=== PATIENT | male | born 2000 | race African-American/Black ===

== ENCOUNTER 2024-09-10 22:34 | Emergency (ER) | payer OTHER, SELFPAY ==
--- NOTE | ~2024-09-10 | XR_ITS ---
EXAMINATION: XR CHEST CLINICAL INFORMATION: sob/cough COMPARISON: None available. TECHNIQUE: 2 views of the chest were obtained. FINDINGS: No significant abnormality is noted involving the heart, lungs, mediastinum, bony thorax or soft tissues. XR/XR chest 2V IMPRESSION: Unremarkable examination. Electronically signed by: Asad Roth MD 09/10/2024 11:48 PM [facility] [place]
[2024-09-10 22:40] VITALS: BP 138/80; PULSE 109; RESP 22; TEMP 36.6; O2SAT 97; BMI 42.3
[2024-09-10 22:59] VITALS: PULSE 103; RESP 16; O2SAT 97
[2024-09-10 23:41] LABS: MANUAL DIFF FLAG NO
[2024-09-10 23:44] VITALS: PULSE 84; RESP 18; O2SAT 98
[2024-09-10 23:44] LABS: Basophils Absolute Auto 0.1 X10*3/uL (0.0-0.2); Basophils Percent Auto 0.7 % (0-2); Eosinophils Absolute Auto 1.4 X10*3/uL (0.0-0.4); Hemoglobin 15.3 g/dl (14.0-18.0); Imm Gran Abs Auto 0.04 X10*3/uL (0.00-0.03); Imm Gran Pct Auto 0.3 % (0.0-0.4); Lymphocytes Absolute Auto 2.4 X10*3/uL (1.2-4.9); Lymphocytes Percent Auto 16.9 % (20-40); Mean Corpuscular HGB Conc 34.8 g/dl (31.0-36.0); Mean Corpuscular Hemoglobin 30.4 pg (27.0-33.0); Mean Corpuscular Volume 87.5 fL (80.0-98.0); Mean Platelet Volume 9.2 fL (9.4-12.4); Monocytes Percent Auto 7.3 % (2-11); Neutrophils Absolute Auto 9.1 x10*3/uL (2.0-8.3); Neutrophils Percent Auto 64.8 % (45-73); Platelet Count 352 X10*3/uL (160-400); Red Blood Count 5.03 X10*6/uL (4.60-5.80); Red Cell Distribution Width 13.3 % (11.0-16.0); White Blood Count 14.1 X10*3/uL (4.8-10.8)
[2024-09-10] MEDS: Albuterol Sulfate 2.5 MG, Albuterol/Iprat 2.5/0.5MG 3 ML 3 ML INHALE (23:44)
--- NOTE | 2024-09-10 23:49 | ED.PEDSOB ---
HPI - Pediatric SOB/Dyspnea General Chief Complaint: Dyspnea Stated Complaint: diff breathing Time Seen by Provider: 09/10/24 23:31 Source: patient Mode of arrival: ambulatory Limitations: no limitations History of Present Illness ED Provider: Dr. Zeny Rojas HPI Narrative: Patient comes to the emergency room complaining of shortness of breath, productive cough for couple of days. Patient reports using the inhaler several times prior to arrival, last time 01:00 hour prior to arrival. Patient states that feels that he is still wheezing. Denies any recent episodes of fever. Patient states that 3 weeks ago he was seen in the hospital for palpitations but has not reoccurred since then. Patient states that he is almost out of his medication albuterol Related Data Previous Rx's ?Medication ?Instructions ?Recorded albuterol sulfate 2.5 mg/3 mL 2.5 mg (3 mL) inhalation Q4-6H PRN 09/11/24 (0.083 %) solution for nebulization bronchospasm #75 mL albuterol sulfate 90 mcg/actuation 2 puff inhalation Q4-6H PRN 09/11/24 aerosol inhaler shortness of breath or wheezing #6.7 grams prednisone 50 mg tablet 50 mg PO DAILY #5 tabs 09/11/24 Allergies Allergy/AdvReac Type Severity Reaction Status Date / Time No Known Allergies Allergy Unverified 09/10/24 22:40 [No Known Allergies*] Pediatric Review of Systems Review of Systems: Constitutional : No Weight loss, No Fever, No Chills, No Night Sweats, No Fatigue, No Malaise ENT/Mouth : No Hearing loss, No Ear Pain, No Nasal Congestion, No Sinus Pain, No Hoarseness, No sore throat, No Rhinorrhea, No Swallowing Difficulty Eyes: No Eye Pain, No Swelling, No Redness, No Foreign Body, No Discharge, No Vision Changes Cardiovascular : Complaining of chest tightness without any Chest Pain, palpitations 3 weeks ago, no orthopnea Respiratory : Complaining of cough, wheezing No Smoke Exposure, No Dyspnea Gastrointestinal : No Nausea, No Vomiting, No Diarrhea, No Constipation, No abdominal Pain, No Hematochezia, No Melena Genitourinary : no irregular bleeding, No Dysuria, No Urinary Frequency, No Hematuria, No Urinary Incontinence, No Urgency, No Flank Pain, No Urinary Flow Changes, No Hesitancy Musculoskeletal : No joint pain, No Myalgias, No Joint Swelling Skin : No Skin Lesions, No rash Neuro : No Weakness, No Numbness, No Paresthesias, No Loss of Consciousness, No Dizziness, No Headache Psych : No Anxiety/Panic, No Depression, No SI/HI/AH/VH, No Social Issues, Heme/Lymph: No Bruising, No Bleeding,No Lymphadenopathy Endocrine : No Polyuria, No Polydipsia, No Temperature Intolerance [facility] Past Medical History Medical History (Updated 09/11/24 @ 00:42 by Zeny Rojas MD) Asthma Social History Social History Smoked in Last 30 Days: No Use of substances other than those prescribed or required for medical reasons: No Advance Directives: No Advance Directives Information Provided: Yes Pediatric Exam Narrative: Physical exam: Appearance: Alert. Oriented X3. No acute distress. Eyes: Pupils equal, round and reactive to light. ENT: Pharynx normal. Neck: Normal inspection. Neck supple. No lymph nodes noted. No crepitus CVS: Normal heart rate and rhythm. Pulses normal. Normal S1 and S2 Respiratory: No respiratory distress. Mild bilateral wheezing, moderate air movement, no rales or crackles Abdomen: Soft and nontender. No rigidity. No distention. Skin: Skin warm and dry. Normal skin color. Normal skin turgor. Extremities: No lower extremity edema. No Lacerations. No Rash Neuro: Oriented X 3. No motor deficit. No sensory deficit. Moving all extremities. No slurred speech. CN 2 through 12 grossly intact Psych: calm, cooperative, normal affect General: Limitations: no limitations Course Course Course Narrative: Patient receiving albuterol nebulization treatment, IV magnesium and Solu-Medrol Labs pending Medications Administered Discontinued Medications Generic Name Dose Route Start Last Admin Trade Name Freq PRN Reason Stop Dose Admin Albuterol Sulfate 2.5 mg/ 0 mg 09/10/24 23:31 09/10/24 23:44 Albuterol/Ipratropium 3 ml INHALE 09/10/24 23:32 1 dose ONCE ONE Administration Magnesium Sulfate/Dextrose 1 gm in 100 mls @ 100 mls/hr 09/10/24 23:35 09/10/24 23:58 Magnesium Sulfate/D5w IV 09/11/24 00:34 100 mls/hr ONCE ONE Administration Methylprednisolone Sodium Succinate 125 mg 09/10/24 23:35 09/10/24 23:58 Methylprednisolone Sod Succ 125 Mg/2 Ml Vial IVPUSH 09/10/24 23:36 125 mg ONCE ONE Administration Medical Decision Making Medical Decision Making [facility] Narrative: My interpretation of labs: Patient's white blood cell count 14.1, likely secondary to viral URI, chemistry unremarkable, serology negative for COVID or influenza Chest x-ray is unremarkable Patient states that feels much better, ready for discharge Differential Diagnosis Differential Diagnoses: The differential diagnosis associated with the presentation includes (Asthma, viral URI) Lab Data [facility] Lab Attestation statement: I reviewed the patient's lab results. 09/10/24 23:38 09/10/24 23:37 Labs: Lab Results 09/10/24 09/10/24 09/10/24 Range/Units 23:37 23:38 23:42 WBC 14.1 H (4.8-10.8) X10*3/uL RBC 5.03 (4.60-5.80) X10*6/uL Hgb 15.3 (14.0-18.0) g/dl Hct 44.0 (42.0-52.0) % MCV 87.5 (80.0-98.0) fL MCH 30.4 (27.0-33.0) pg MCHC 34.8 (31.0-36.0) g/dl RDW 13.3 (11.0-16.0) % Plt Count 352 (160-400) X10*3/uL MPV 9.2 L (9.4-12.4) fL Immature Gran % (Auto) 0.3 (0.0-0.4) % Neut % (Auto) 64.8 (45-73) % Lymph % (Auto) 16.9 L (20-40) % [place] % (Auto) 7.3 (2-11) % Eos % (Auto) 10.0 H (0-4) % Baso % (Auto) 0.7 (0-2) % Lymph # (Auto) 2.4 (1.2-4.9) X10*3/uL [place] # (Auto) 1.0 (0.1-1.2) X10*3/uL Eos # (Auto) 1.4 H (0.0-0.4) X10*3/uL Baso # (Auto) 0.1 (0.0-0.2) X10*3/uL Abs Immat Gran (auto) 0.04 H (0.00-0.03) X10*3/uL Absolute Neuts (auto) 9.1 H (2.0-8.3) x10*3/uL Absolute Nucleated RBC 0.000 (0.0-0.012) X10*3/uL Nucleated RBC % (auto) 0.0 (0.0-0.2) /100WBC Sodium 139 (135-145) mmol/L Potassium 3.8 (3.3-5.1) mmol/L Chloride 108 (96-108) mmol/L Carbon Dioxide 23 (22-29) mmol/L Anion Gap 12 (12-20) BUN 7 L (9-16) mg/dL Creatinine 0.86 (0.5-1.4) mg/dL Estim Creat Clear Calc 174.4 Estimated GFR > 60 Random Glucose 105 (60-115) mg/dL Calcium 9.0 (8.4-10.2) mg/dL Total Bilirubin 0.3 (0.0-1.0) mg/dL AST 20 (5-37) U/L ALT 26 (0-40) U/L Alkaline Phosphatase 84 (39-117) U/L Total Protein 7.1 (6.5-8.0) g/dL Albumin 4.3 (3.5-5.0) g/dL COVID-19 ([place]) Negative (Negative) COVID-19 Clin Com See Note Influenza Type A ([place]) Negative (Negative) Influenza Type B ([place]) Negative (Negative) Influenza A & B Note See Note Independent Interpretation I performed an independent interpretation of an: Plain X-Ray Radiology Impression Discussion of test interpretation with radiology: I have reviewed the radiologist's reading. Radiologist Impression: No significant abnormality is noted involving the heart, lungs, mediastinum, bony thorax or soft tissues. XR/XR chest 2V IMPRESSION: Unremarkable examination. Discharge Plan Discharge Clinical Impression: Asthma Patient Disposition: Home, Self-Care Instructions: Asthma (ED) Additional Instructions: Please follow-up with your primary care physician tomorrow. If you have any worsening or new symptoms, please return to the emergency room or call 911 Prescriptions: New albuterol sulfate 2.5 mg /3 mL (0.083 %) solution for nebulization 2.5 mg inhalation Q4-6H PRN (Reason: bronchospasm) Qty: 75 0RF albuterol sulfate 90 mcg/actuation HFA aerosol inhaler 2 puff inhalation Q4-6H PRN (Reason: shortness of breath or wheezing) Qty: 6.7 0RF prednisone 50 mg tablet 50 mg PO DAILY Qty: 5 0RF Print Language: Belarusian
[2024-09-10 23:58] LABS: Alanine Aminotransferase 26 U/L (0-40); Albumin Level 4.3 g/dL (3.5-5.0); Alkaline Phosphatase 84 U/L (39-117); Anion Gap 12 (12-20); Aspartate Amino Transferase 20 U/L (5-37); Bilirubin Total 0.3 mg/dL (0.0-1.0); Blood Urea Nitrogen 7 mg/dL (9-16); Carbon Dioxide 23 mmol/L (22-29); Chloride 108 mmol/L (96-108); Creatinine Clr Calc Pharmacy 174.4; Estimated Glomerular Filt Rate > 60; Glucose Random 105 mg/dL (60-115); Potassium 3.8 mmol/L (3.3-5.1); Sodium 139 mmol/L (135-145); Total Protein 7.1 g/dL (6.5-8.0)
[2024-09-10] MEDS: Magnesium Sulfate/D5W 1 GM/100 ML PIGGYBACK IV (23:58)
[2024-09-10] MEDS: methylPREDNISolone Sod Succ 125 MG/2 ML VIAL IVPUSH (23:58)
--- NOTE | 2024-09-11 00:08 | PC.NURSE ---
Respiratory treatment given, Iv placed and medicated per dec.
[2024-09-11 00:17] LABS: COVID-19 Test Negative (Negative); IDNOW Serial# 08D9AD1C; IDNOW Serial# 152EDE1D; Influenza A Negative (Negative); Influenza B2 Negative (Negative)
[2024-09-11 01:09] VITALS: BP 137/76; PULSE 100; RESP 18; TEMP 36.1; O2SAT 96
--- NOTE | 2024-09-11 01:10 | PC.NURSE ---
Iv removed, Reviewed discharge instructions with pt. pt verbalized understanding, no sign of respiratory distress upon discharge
[2024-09-11 01:12] VITALS: BP 137/76; PULSE 100; RESP 18; TEMP 36.1; O2SAT 96
== END 2024-09-11 01:13 | disposition home or self-care (01) ==
PROVIDERS: Emergency Provider Emergency Medicine
DX: J45.909 Unspecified asthma, uncomplicated (principal); R06.00 Dyspnea, unspecified; R05.9 Cough, unspecified; R06.02 Shortness of breath; Z11.52 Encounter for screening for COVID-19; Z79.899 Other long term (current) drug therapy
CPT/HCPCS: 36415; 71046; 80053; 85025; 87502; 87635; 94640; 94664; 96365; 96375; 99284; 99285; J2919; J3475

== ENCOUNTER 2024-10-02 14:57 | Emergency (ER) | payer OTHER, SELFPAY ==
--- NOTE | ~2024-10-02 | XR_ITS ---
EXAMINATION: XR CHEST CLINICAL INFORMATION: Shortness of breath. COMPARISON: Chest the breasts dated 09/10/2024. TECHNIQUE: Frontal view of the chest was obtained. FINDINGS: No significant abnormality is noted involving the heart, lungs, mediastinum, bony thorax or soft tissues. XR/XR chest 1V IMPRESSION: Unremarkable examination. Electronically signed by: Terry Wen MD 10/02/2024 07:12 PM [facility] [place]
[2024-10-02 15:04] VITALS: BP 156/83; PULSE 90; RESP 22; TEMP 36.8; O2SAT 95; BMI 42.7
== END 2024-10-02 19:34 | disposition left against medical advice (07) ==
LOC: HO.ED 19:33
PROVIDERS: Emergency Provider Emergency Medicine
DX: R06.02 Shortness of breath (principal); J45.909 Unspecified asthma, uncomplicated
CPT/HCPCS: 71045; 99281

== ENCOUNTER 2024-10-03 05:57 | Emergency (ER) | payer OTHER, SELFPAY ==
--- NOTE | ~2024-10-03 | XR_ITS ---
EXAMINATION: XR CHEST CLINICAL INFORMATION: sob COMPARISON: None available. TECHNIQUE: Frontal view of the chest was obtained. FINDINGS: No significant abnormality is noted involving the heart, lungs, mediastinum, bony thorax or soft tissues. XR/XR chest 1V IMPRESSION: Unremarkable examination. Electronically signed by: Asad Roth MD 10/03/2024 06:54 AM [facility] [place]
[2024-10-03 06:03] VITALS: BP 148/72; BP 152/90; PULSE 118; PULSE 122; RESP 24; TEMP 36.7; O2SAT 89; O2SAT 97; BMI 42.7
--- NOTE | 2024-10-03 06:05 | ECG_ITS ---
Test Reason : SOB Blood Pressure : / mmHG Vent. Rate : 129 BPM Atrial Rate : 129 BPM P-R Int : 144 ms QRS Dur : 094 ms QT Int : 302 ms P-R-T Axes : 083 073 056 degrees QTc Int : 442 ms Sinus tachycardia Otherwise normal ECG No previous ECGs available Referred By: Zeny Rojas Electronically Signed By:Wood Ramos
--- NOTE | 2024-10-03 06:06 | ED_ITS ---
HPI - General Adult General Chief complaint: Dyspnea Stated complaint: DIFFICULTY BREATHING Time Seen by Provider: 10/03/24 05:59 Source: patient and EMS Mode of arrival: ambulatory Limitations: no limitations History of Present Illness ED Provider: Dr. Zeny Rojas HPI narrative: Patient comes to the emergency room complaining of an asthma exacerbation. Patient states that yesterday she came around 16:00, complaining of wheezing. However, they waiting main was too long and patient decided to leave without being seen. 14 hours later, patient states that his shortness of breath got worse, try giving herself nebulization treatments at home without any relief. Denies chest pain according to EMS, patient received Solu-Medrol 125 mg, nebulization treatment and IM epinephrine 0.3 mg Related Data Previous Rx's ?Medication ?Instructions ?Recorded albuterol sulfate 2.5 mg/3 mL 2.5 mg (3 mL) inhalation Q4-6H PRN 09/11/24 (0.083 %) solution for nebulization bronchospasm #75 mL albuterol sulfate 90 mcg/actuation 2 puff inhalation Q4-6H PRN 09/11/24 aerosol inhaler shortness of breath or wheezing #6.7 grams prednisone 50 mg tablet 50 mg PO DAILY #5 tabs 09/11/24 albuterol sulfate 2.5 mg/3 mL 2.5 mg (3 mL) inhalation Q4-6H PRN 10/03/24 (0.083 %) solution for nebulization shortness of breath or wheezing #90 mL albuterol sulfate 90 mcg/actuation 2 puff inhalation Q4-6H PRN 10/03/24 aerosol inhaler shortness of breath or wheezing #8.5 grams prednisone 50 mg tablet 50 mg PO DAILY #5 tabs 10/03/24 Allergies Allergy/AdvReac Type Severity Reaction Status Date / Time No Known Allergies Allergy Verified 10/03/24 06:11 [No Known Allergies*] Review of Systems 2 Review of Systems: Constitutional : No Weight loss, No Fever, No Chills, No Night Sweats, No Fatigue, No Malaise ENT/Mouth : No Hearing loss, No Ear Pain, No Nasal Congestion, No Sinus Pain, No Hoarseness, No sore throat, No Rhinorrhea, No Swallowing Difficulty Eyes: No Eye Pain, No Swelling, No Redness, No Foreign Body, No Discharge, No Vision Changes Cardiovascular : No Chest Pain, No SOB, No Dyspnea on Exertion, No Orthopnea, No Edema, No Palpitations Respiratory : Complaining of cough, wheezing, shortness of breath Gastrointestinal : No Nausea, No Vomiting, No Diarrhea, No Constipation, No abdominal Pain, No Hematochezia, No Melena Genitourinary : no irregular bleeding, No Dysuria, No Urinary Frequency, No Hematuria, No Urinary Incontinence, No Urgency, No Flank Pain, No Urinary Flow Changes, No Hesitancy Musculoskeletal : No joint pain, No Myalgias, No Joint Swelling Skin : No Skin Lesions, No rash Neuro : No Weakness, No Numbness, No Paresthesias, No Loss of Consciousness, No Dizziness, No Headache Psych : No Anxiety/Panic, No Depression, No SI/HI/AH/VH, No Social Issues, Heme/Lymph: No Bruising, No Bleeding,No Lymphadenopathy Endocrine : No Polyuria, No Polydipsia, No Temperature Intolerance PMFSH Past Medical History Medical History Asthma Social History Social History Smoked in Last 30 Days: No Use of substances other than those prescribed or required for medical reasons: Yes Substance Use Type: Marijuana Advance Directives: No Advance Directives Information Provided: Yes Do you have a plan to hurt others: No Plan Physical Exam ED Vital Signs: Vital Signs - 24 hr 10/03/24 06:03 10/03/24 06:11 10/03/24 07:12 Temperature 98.0 F Pulse Rate 122 H 110 H 97 Respiratory Rate 24 H 18 16 Blood Pressure 152/90 H Pulse Oximetry 97 Oxygen Delivery Method Room Air 10/03/24 07:40 10/03/24 07:40 10/03/24 07:42 Temperature Pulse Rate 100 125 H Respiratory Rate 20 Blood Pressure Pulse Oximetry 94 94 94 Oxygen Delivery Method Room Air Room Air BMI result Body Mass Index 42.7 Const Other: Appearance: Alert. Oriented X3. No acute distress. Eyes: Pupils equal, round and reactive to light. ENT: Pharynx normal. Neck: Normal inspection. Neck supple. No lymph nodes noted. No crepitus CVS: Normal heart rate and rhythm. Pulses normal. Normal S1 and S2 Respiratory: Patient tachypneic, respiratory rate in the 30s, speaking now in full sentences, bilateral wheezing, decreased air movement Abdomen: Soft and nontender. No rigidity. No distention. Skin: Skin warm and dry. Normal skin color. Normal skin turgor. Extremities: No lower extremity edema. No Lacerations. No Rash Neuro: Oriented X 3. No motor deficit. No sensory deficit. Moving all extremities. No slurred speech. CN 2 through 12 grossly intact Psych: calm, cooperative, normal affect Course Course Course Narrative: Patient additionally receiving IV magnesium. Additional nebulization treatments. All of patient's labs and imaging pending Medications Administered Generic Name Dose Route Start Last Admin Trade Name Freq PRN Reason Stop Dose Admin Magnesium Sulfate 2 gm in 50 mls @ 25 mls/hr 10/03/24 06:09 10/03/24 06:15 Magnesium Sulfate/H2o IV 10/03/24 08:08 25 mls/hr ONCE ONE Administration Discontinued Medications Generic Name Dose Route Start Last Admin Trade Name Freq PRN Reason Stop Dose Admin Albuterol Sulfate 2.5 mg/ 0 mg 10/03/24 06:08 10/03/24 06:10 Albuterol/Ipratropium 3 ml INHALE 10/03/24 06:09 1 dose ONCE ONE Administration Albuterol Sulfate 2.5 mg/ 0 mg 10/03/24 07:12 10/03/24 07:15 Albuterol/Ipratropium 3 ml INHALE 10/03/24 07:13 1 dose ONCE ONE Administration Medical Decision Making Medical Decision Making [facility] Narrative: Initially when patient came, patient was wheezing quite a bit. Patient received 2 rounds of treatment, nebulizations. After the 2nd treatment, patient states that she feels back to baseline. Barely any wheezing, ambulation around the emergency room successful, oxygen saturation 94 on above, patient states that feels really well. Patient requesting a refill on albuterol, she will be going home with a prescription of prednisone Differential Diagnosis Differential Diagnoses: The differential diagnosis associated with the presentation includes (Asthma exacerbation, pneumonia) Admission/Observation Consideration of admission/observation: Escalation of care including admission/observation considered Lab Data [facility] Lab Attestation statement: I reviewed the patient's lab results. 10/03/24 06:08 10/03/24 06:08 Labs: Lab Results 10/03/24 10/03/24 Range/Units 06:08 06:15 WBC 12.7 H (4.8-10.8) X10*3/uL RBC 5.18 (4.60-5.80) X10*6/uL Hgb 15.4 (14.0-18.0) g/dl Hct 45.2 (42.0-52.0) % MCV 87.3 (80.0-98.0) fL MCH 29.7 (27.0-33.0) pg MCHC 34.1 (31.0-36.0) g/dl RDW 13.2 (11.0-16.0) % Plt Count 413 H (160-400) X10*3/uL MPV 9.3 L (9.4-12.4) fL Immature Gran % (Auto) 0.3 (0.0-0.4) % Neut % (Auto) 61.9 (45-73) % Lymph % (Auto) 19.4 L (20-40) % [place] % (Auto) 8.2 (2-11) % Eos % (Auto) 9.7 H (0-4) % Baso % (Auto) 0.5 (0-2) % Lymph # (Auto) 2.5 (1.2-4.9) X10*3/uL [place] # (Auto) 1.0 (0.1-1.2) X10*3/uL Eos # (Auto) 1.2 H (0.0-0.4) X10*3/uL Baso # (Auto) 0.1 (0.0-0.2) X10*3/uL Abs Immat Gran (auto) 0.04 H (0.00-0.03) X10*3/uL Absolute Neuts (auto) 7.9 (2.0-8.3) x10*3/uL Absolute Nucleated RBC 0.000 (0.0-0.012) X10*3/uL Nucleated RBC % (auto) 0.0 (0.0-0.2) /100WBC VBG pH 7.41 (7.32-7.43) VBG pCO2 36 mmHg VBG pO2 72 mmHg VBG HCO3 23 (22-26) mmol/L VBG O2 Saturation 95.0 % VBG Base Excess -0.1 mmol/L Sodium 138 (135-145) mmol/L Potassium 4.8 D (3.3-5.1) mmol/L Chloride 107 (96-108) mmol/L Carbon Dioxide 21 L (22-29) mmol/L Anion Gap 15 (12-20) BUN 8 L (9-16) mg/dL Creatinine 0.80 (0.5-1.4) mg/dL Estim Creat Clear Calc 186.9 Estimated GFR > 60 Random Glucose 98 (60-115) mg/dL Calcium 9.3 (8.4-10.2) mg/dL Total Bilirubin 0.6 (0.0-1.0) mg/dL Direct Bilirubin 0.1 (0.0-0.5) mg/dL AST 42 H (5-37) U/L ALT 27 (0-40) U/L Alkaline Phosphatase 78 (39-117) U/L Troponin I High Sens < 2.7 (<3.5-35.0) ng/L Total Protein 7.9 (6.5-8.0) g/dL Albumin 4.1 (3.5-5.0) g/dL Influenza Type A (PCR) NEGATIVE (Negative) Influenza Type B (PCR) NEGATIVE (Negative) RSV RNA Qual (PCR) NEGATIVE (Negative) SARS-CoV-2 RNA (RT-PCR) NEGATIVE (Negative) Independent Interpretation I performed an independent interpretation of an: Plain X-Ray Radiology Impression Discussion of test interpretation with radiology: I have reviewed the radiologist's reading. Radiologist Impression: No significant abnormality is noted involving the heart, lungs, mediastinum, bony thorax or soft tissues. XR/XR chest 1V IMPRESSION: Unremarkable examination. Critical Care Time Critical Care Time Critical Care Time: Yes Total Critical Care Time: 60 Attestation: I have personally provided critical care time. Time includes review of lab data, radiology results, discussion with consultants, and monitoring for potential decompensation. Intervention performed as documented. Discharge Plan Discharge Clinical Impression: Asthma Patient Disposition: Home, Self-Care Instructions: Asthma (ED) Additional Instructions: Please follow-up with your primary care physician tomorrow. If you have any worsening or new symptoms, please return to the emergency room or call 911 Prescriptions: New albuterol sulfate 90 mcg/actuation HFA aerosol inhaler 2 puff inhalation Q4-6H PRN (Reason: shortness of breath or wheezing) Qty: 8.5 1RF albuterol sulfate 2.5 mg /3 mL (0.083 %) solution for nebulization 2.5 mg inhalation Q4-6H PRN (Reason: shortness of breath or wheezing) Qty: 90 0RF prednisone 50 mg tablet 50 mg PO DAILY Qty: 5 0RF No Action albuterol sulfate 2.5 mg /3 mL (0.083 %) solution for nebulization 2.5 mg inhalation Q4-6H PRN (Reason: bronchospasm) Qty: 75 0RF albuterol sulfate 90 mcg/actuation HFA aerosol inhaler 2 puff inhalation Q4-6H PRN (Reason: shortness of breath or wheezing) Qty: 6.7 0RF prednisone 50 mg tablet 50 mg PO DAILY Qty: 5 0RF Stand Alone Forms: Work/School Release Print Language: Amharic
[2024-10-03] MEDS: Albuterol Sulfate 2.5 MG, Albuterol/Iprat 2.5/0.5MG 3 ML 3 ML INHALE ×2 (06:10→07:15)
[2024-10-03 06:11] VITALS: PULSE 110; RESP 18; O2SAT 96
[2024-10-03 06:15] LABS: Venous Blood Gas Refer to POC result
[2024-10-03] MEDS: Magnesium Sulfate/H2O 2 GM/50 ML PIGGYBACK IV (06:15)
[2024-10-03 06:16] LABS: Basophils Absolute Auto 0.1 X10*3/uL (0.0-0.2); Basophils Percent Auto 0.5 % (0-2); Eosinophils Absolute Auto 1.2 X10*3/uL (0.0-0.4); Eosinophils Percent Auto 9.7 % (0-4); Hematocrit 45.2 % (42.0-52.0); Hemoglobin 15.4 g/dl (14.0-18.0); Imm Gran Abs Auto 0.04 X10*3/uL (0.00-0.03); Imm Gran Pct Auto 0.3 % (0.0-0.4); Lymphocytes Absolute Auto 2.5 X10*3/uL (1.2-4.9); Lymphocytes Percent Auto 19.4 % (20-40); MANUAL DIFF FLAG NO; Mean Corpuscular HGB Conc 34.1 g/dl (31.0-36.0); Mean Corpuscular Hemoglobin 29.7 pg (27.0-33.0); Mean Corpuscular Volume 87.3 fL (80.0-98.0); Mean Platelet Volume 9.3 fL (9.4-12.4); Monocytes Percent Auto 8.2 % (2-11); Neutrophils Absolute Auto 7.9 x10*3/uL (2.0-8.3); Neutrophils Percent Auto 61.9 % (45-73); Platelet Count 413 X10*3/uL (160-400); Red Blood Count 5.18 X10*6/uL (4.60-5.80); Red Cell Distribution Width 13.2 % (11.0-16.0); White Blood Count 12.7 X10*3/uL (4.8-10.8)
--- NOTE | 2024-10-03 06:16 | PC.NURSE ---
this rn assumed care of pt from ems pt a+o speaking in complete sentences pt medicated according to mar 20g IV in R wrist labs obtained. ed provider at bedside. RT at bedside for neb treatment pt tolerated well
[2024-10-03 06:21] LABS: VBG Base Excess -0.1 mmol/L; VBG HCO3 23 mmol/L (22-26); VBG pCO2 36 mmHg; VBG pH 7.41 (7.32-7.43); VBG pO2 72 mmHg
--- NOTE | 2024-10-03 06:30 | MHC.EDTECH ---
Patient BIBA,changed into hospital attire,vitals taken,pt placed on the compliance monitor,EKG taken per order and signed by provider,labs drawn and sent to lab,call jameson in reach
[2024-10-03 06:35] LABS: Alanine Aminotransferase 27 U/L (0-40); Albumin Level 4.1 g/dL (3.5-5.0); Alkaline Phosphatase 78 U/L (39-117); Anion Gap 15 (12-20); Aspartate Amino Transferase 42 U/L (5-37); Bilirubin Direct 0.1 mg/dL (0.0-0.5); Bilirubin Total 0.6 mg/dL (0.0-1.0); Blood Urea Nitrogen 8 mg/dL (9-16); Calcium 9.3 mg/dL (8.4-10.2); Carbon Dioxide 21 mmol/L (22-29); Chloride 107 mmol/L (96-108); Creatinine Clr Calc Pharmacy 186.9; Estimated Glomerular Filt Rate > 60; Glucose Random 98 mg/dL (60-115); Potassium 4.8 mmol/L (3.3-5.1); Sodium 138 mmol/L (135-145); Total Protein 7.9 g/dL (6.5-8.0)
[2024-10-03 06:41] LABS: Troponin-I High Sensitivity < 2.7 ng/L (<3.5-35.0)
[2024-10-03 06:55] LABS: Influenza A PCR NEGATIVE (Negative); Influenza B PCR NEGATIVE (Negative); Resp Syncy Virus RNA Qual PCR NEGATIVE (Negative); SARS COV2 PCR INHOUSE NEGATIVE (Negative)
[2024-10-03 07:12] VITALS: PULSE 97; RESP 16; O2SAT 94
[2024-10-03 07:40] VITALS: PULSE 100; O2SAT 94
[2024-10-03 07:42] VITALS: PULSE 125; RESP 20; O2SAT 94
--- NOTE | 2024-10-03 07:42 | PC.NURSE ---
ambulating pulse ox 93-94%. HR 128.
[2024-10-03 08:18] VITALS: BP 124/69; PULSE 114; RESP 20; TEMP 36.8; O2SAT 94
== END 2024-10-03 08:19 | disposition home or self-care (01) ==
PROVIDERS: Emergency Provider Emergency Medicine
DX: J45.909 Unspecified asthma, uncomplicated (principal); R06.02 Shortness of breath; R00.0 Tachycardia, unspecified; Z03.818 Encounter for observation for suspected exposure to other biological agents ruled out; Z79.899 Other long term (current) drug therapy
CPT/HCPCS: 0241U; 36415; 71045; 80048; 80076; 82803; 84484; 85025; 93005; 94640; 99285; J3475

== ENCOUNTER → 2024-10-03 06:05 | Outpatient (BNV) | payer SELFPAY | PROVIDERS: Emergency Provider Emergency Medicine; Visit Provider Internal Medicine Cardiovascular Disease | DX: R00.0 Tachycardia, unspecified (principal) | CPT/HCPCS: 93010 ==

== ENCOUNTER 2024-11-28 00:23 | Emergency (ER) | payer OTHER, SELFPAY ==
--- NOTE | ~2024-11-28 | XR_ITS ---
CLINICAL HISTORY: shortness of breath 1 view chest x-ray Comparison: Chest x-ray from 10/03/2024 Findings: Low lung volumes with mild right infrahilar atelectasis and/or pneumonitis. No lobar consolidation. No pneumothorax or pleural effusion in this portable image. Imaged mediastinum and imaged osseous structures appear unchanged. IMPRESSION: Mild right infrahilar atelectasis/pneumonitis. This document has been electronically signed by: Seth Bush MD on 11/28/2024 01:36:31
[2024-11-28 00:30] VITALS: BP 150/70; BP 155/68; PULSE 104; PULSE 112; RESP 22; TEMP 37.1; O2SAT 92; O2SAT 96; BMI 44.8
[2024-11-28 00:37] VITALS: BP 150/70; PULSE 112; RESP 22; TEMP 37.1; O2SAT 96
--- NOTE | 2024-11-28 00:40 | ECG_ITS ---
Test Reason : sob Blood Pressure : */* mmHG Vent. Rate : 105 BPM Atrial Rate : 105 BPM P-R Int : 162 ms QRS Dur : 94 ms QT Int : 324 ms P-R-T Axes : 83 43 39 degrees QTcB Int : 428 ms Sinus tachycardia Otherwise normal ECG When compared with ECG of 03-Oct-2024 06:18, No significant change was found Referred By: Generic ED Physician Electronically Signed By: ANUM WEAVER
[2024-11-28 01:12] LABS: MANUAL DIFF FLAG NO
[2024-11-28 01:13] LABS: Basophils Absolute Auto 0.1 X10*3/uL (0.0-0.2); Basophils Percent Auto 0.5 % (0-2); Eosinophils Absolute Auto 1.3 X10*3/uL (0.0-0.4); Eosinophils Percent Auto 9.7 % (0-4); Hematocrit 42.1 % (42.0-52.0); Hemoglobin 14.4 g/dl (14.0-18.0); Imm Gran Abs Auto 0.03 X10*3/uL (0.00-0.03); Imm Gran Pct Auto 0.2 % (0.0-0.4); Lymphocytes Absolute Auto 2.9 X10*3/uL (1.2-4.9); Lymphocytes Percent Auto 22.5 % (20-40); Mean Corpuscular HGB Conc 34.2 g/dl (31.0-36.0); Mean Corpuscular Hemoglobin 29.6 pg (27.0-33.0); Mean Corpuscular Volume 86.6 fL (80.0-98.0); Mean Platelet Volume 9.2 fL (9.4-12.4); Monocytes Absolute Auto 0.9 X10*3/uL (0.1-1.2); Monocytes Percent Auto 6.9 % (2-11); Neutrophils Absolute Auto 7.8 x10*3/uL (2.0-8.3); Neutrophils Percent Auto 60.2 % (45-73); Platelet Count 380 X10*3/uL (160-400); Red Blood Count 4.86 X10*6/uL (4.60-5.80); Red Cell Distribution Width 13.7 % (11.0-16.0); White Blood Count 12.9 X10*3/uL (4.8-10.8)
[2024-11-28 01:27] LABS: Anion Gap 14 (12-20); Blood Urea Nitrogen 15 mg/dL (9-16); Carbon Dioxide 20 mmol/L (22-29); Chloride 111 mmol/L (96-108); Creatinine Clr Calc Pharmacy 196.8; Estimated Glomerular Filt Rate > 60; Glucose Random 122 mg/dL (60-115); Potassium 3.6 mmol/L (3.3-5.1); Sodium 141 mmol/L (135-145)
[2024-11-28 01:28] LABS: Influenza A PCR NEGATIVE (Negative); Influenza B PCR NEGATIVE (Negative); Resp Syncy Virus RNA Qual PCR NEGATIVE (Negative); SARS COV2 PCR INHOUSE NEGATIVE (Negative)
[2024-11-28 01:37] LABS: Troponin-I High Sensitivity < 2.7 ng/L (<3.5-35.0)
[2024-11-28 04:20] VITALS: BP 147/76; PULSE 88; RESP 17; TEMP 36.8; O2SAT 95
--- NOTE | 2024-11-28 06:30 | ED_ITS ---
HPI - Asthma General Chief Complaint: Dyspnea Stated Complaint: HX ASTHMA Time Seen by Provider: 11/28/24 06:27 Source: patient and EMS Mode of arrival: EMS Limitations: no limitations History of Present Illness ED Provider: Chalo Mead PA-C HPI Narrative: 24 yo male with history of asthma presents to the ER via EMS for evaluation of SOB and worsening asthma symptoms after playing laser tag yesterday. Patient reports after exercising in the heat, SOB and wheezing got severe. He tried using albuterol inhaler with minimal relief. Reports a couple of weeks ago went to urgent care and was prescribe prednisone and z-pack which he started but never finished. He reports frequent exacerbations w/ sob and wheezing. He smokes marijuana but not cigarettes. Does not have a lung doctor. Denies fever, chills, N/V/D, abdominal pain or chest pain. MD complaint: asthma attack and shortness of breath Onset (ago): hour(s) Severity: moderate Context: other (exercise in the heat) Associated symptoms: dry cough Treatments Prior to Arrival: inhaled bronchodilator Related Data Current Asthma Therapy: inhaled bronchodilator and recent oral steroid Previous Rx's ?Medication ?Instructions ?Recorded albuterol sulfate 2.5 mg/3 mL 2.5 mg (3 mL) inhalation Q4-6H PRN 09/11/24 (0.083 %) solution for nebulization bronchospasm #75 mL albuterol sulfate 90 mcg/actuation 2 puff inhalation Q4-6H PRN 09/11/24 aerosol inhaler shortness of breath or wheezing #6.7 grams prednisone 50 mg tablet 50 mg PO DAILY #5 tabs 09/11/24 albuterol sulfate 2.5 mg/3 mL 2.5 mg (3 mL) inhalation Q4-6H PRN 10/03/24 (0.083 %) solution for nebulization shortness of breath or wheezing #90 mL albuterol sulfate 90 mcg/actuation 2 puff inhalation Q4-6H PRN 10/03/24 aerosol inhaler shortness of breath or wheezing #8.5 grams prednisone 50 mg tablet 50 mg PO DAILY #5 tabs 10/03/24 amoxicillin 875 mg-potassium 1 tab PO BID #10 tabs 11/28/24 clavulanate 125 mg tablet azithromycin 250 mg tablet See Rx Instructions PO .COMPLEX #6 11/28/24 (Zithromax Z-Sedrick) tabs prednisone 20 mg tablet 40 mg (2 x 20 mg) PO DAILY #10 tabs 11/28/24 Allergies Allergy/AdvReac Type Severity Reaction Status Date / Time No Known Allergies Allergy Verified 11/28/24 00:34 [No Known Allergies*] Review of Systems 2 Review of Systems: Yes all other systems are reviewed and are negative [facility] Past Medical History Medical History Asthma Social History Social History Smoked in Last 30 Days: No Use of substances other than those prescribed or required for medical reasons: No Substance Use Type: Marijuana Advance Directives: No Advance Directives Information Provided: Yes Physical Exam 2 Vital Signs: Vital Signs: Last Vital Signs Temp 98.2 F 11/28/24 04:20 Pulse 88 11/28/24 04:20 Resp 17 11/28/24 04:20 BP 147/76 H 11/28/24 04:20 Pulse Ox 95 11/28/24 04:20 O2 Del Method Room Air 11/28/24 04:20 BMI result Body Mass Index 44.8 Appearance: Alert. Oriented X3. No acute distress. Head: normocephalic, atraumatic. Eyes: Pupils equal, round and reactive to light. ENT: Pharynx normal. No tonsillar swelling or exudate. Neck: Normal inspection. Neck supple. CVS: Normal heart rate and rhythm. Pulses normal. Respiratory: No respiratory distress. speaking in complete sentences, bilateral upper lobe expiratory wheezes, coarse in the middle and lower lung sun without wheezing or rhonchi Abdomen: Soft and nontender. +BS x4 Skin: Skin warm and dry. Normal skin color. Normal skin turgor. No rashes. Extremities: No lower extremity edema. No joint swelling. Neuro/psych: Oriented X 3. grossly normal, nonfocal. CN II-XII intact. Normal speech and cognition. Medical Decision Making Medical Decision Making MDM Narrative: 24 yo male with asthma presenting for SOB and wheezing after playing laser tag indoors where it was hot and humid. wheezing in upper lobes on exam, no distress or hypoxia. was given neb en route to the ER hours ago. does not require repeat at this time. labs showing mild leukocytosis. viral swab negative. cxr w/ right perihilar pneumonitis vs atelectasis. will give empiric treatment w/ abx. compliance and completion importance discussed. comfortable with discharge home. discussed smoking cessation and pulm f/u. pt agrees w/ plan. Differential Diagnosis Differential Diagnoses: The differential diagnosis associated with the presentation includes strep, covid, flu, rsv, other viral syndrome, bronchitis, pneumonia, asthma exacerbation, low suspicion for acs or pe Admission/Observation Consideration of admission/observation: Escalation of care including admission/observation considered Lab Data MDM Lab Attestation statement: I reviewed the patient's lab results. as above 11/28/24 01:04 11/28/24 01:04 Labs: Lab Results 11/28/24 11/28/24 Range/Units 00:47 01:04 WBC 12.9 H (4.8-10.8) X10*3/uL RBC 4.86 (4.60-5.80) X10*6/uL Hgb 14.4 (14.0-18.0) g/dl Hct 42.1 (42.0-52.0) % MCV 86.6 (80.0-98.0) fL MCH 29.6 (27.0-33.0) pg MCHC 34.2 (31.0-36.0) g/dl RDW 13.7 (11.0-16.0) % Plt Count 380 (160-400) X10*3/uL MPV 9.2 L (9.4-12.4) fL Immature Gran % (Auto) 0.2 (0.0-0.4) % Neut % (Auto) 60.2 (45-73) % Lymph % (Auto) 22.5 (20-40) % Monroe % (Auto) 6.9 (2-11) % Eos % (Auto) 9.7 H (0-4) % Baso % (Auto) 0.5 (0-2) % Lymph # (Auto) 2.9 (1.2-4.9) X10*3/uL Monroe # (Auto) 0.9 (0.1-1.2) X10*3/uL Eos # (Auto) 1.3 H (0.0-0.4) X10*3/uL Baso # (Auto) 0.1 (0.0-0.2) X10*3/uL Abs Immat Gran (auto) 0.03 (0.00-0.03) X10*3/uL Absolute Neuts (auto) 7.8 (2.0-8.3) x10*3/uL Absolute Nucleated RBC 0.000 (0.0-0.012) X10*3/uL Nucleated RBC % (auto) 0.0 (0.0-0.2) /100WBC Sodium 141 (135-145) mmol/L Potassium 3.6 D (3.3-5.1) mmol/L Chloride 111 H (96-108) mmol/L Carbon Dioxide 20 L (22-29) mmol/L Anion Gap 14 (12-20) BUN 15 (9-16) mg/dL Creatinine 0.78 (0.5-1.4) mg/dL Estim Creat Clear Calc 196.8 Estimated GFR > 60 Random Glucose 122 H (60-115) mg/dL Calcium 9.0 (8.4-10.2) mg/dL Troponin I High Sens < 2.7 (<3.5-35.0) ng/L Influenza Type A (PCR) NEGATIVE (Negative) Influenza Type B (PCR) NEGATIVE (Negative) RSV RNA Qual (PCR) NEGATIVE (Negative) SARS-CoV-2 RNA (RT-PCR) NEGATIVE (Negative) Independent Interpretation I performed an independent interpretation of an: EKG Interpretation: sinus tachycardia, hr 105 bpm, normal QTc, normal QRS, no st segment elevations or depressions cxr with right perihilar haziness Radiology Impression Discussion of test interpretation with radiology: I have reviewed the radiologist's reading. Independent Historian Clinical information obtained from an independent historian. History obtained from or confirmed by: EMS External Record Review External record reviewed: Outpatient record, Prior outpatient labs and Prior outpatient radiology Tests considered The following testing was considered but not selected: CTA considered, low suspicion for PE Prescription Management I considered prescription management with: Antibiotic and Other (steroids, bronchodilator) Chronic Conditions Patient?s care impacted by: Other (asthma) Procedures Smoking Cessation Time Spent Discussing Smoking Cessation w/Patient (min): 4 Patient Acknowledges Need for Cessation: Yes Critical Care Time Critical Care Time Critical Care Time: No Discharge Plan Discharge Clinical Impression: Asthma Qualifiers: Asthma severity: unspecified severity Asthma persistence: unspecified Asthma complication type: unspecified Qualified Code(s): J45.909 - Unspecified asthma, uncomplicated Patient Disposition: Home, Self-Care Instructions: Asthma (DC) Additional Instructions: you tested negative for covid, flu and RSV your chest x-ray showed some inflammed lung on the right side that may be due to evolving pneumonia Take the prescribed antibiotics as directed, complete the entire course and do not miss any doses Use your nebulizer every 4-6 hours and as neeeded for the next 2 days or until your symptoms are improved recommend following up with a breading machine tender - name and number below, call for an appointment If you develop new or worsening symptoms call 911 or come back to the ER for further evaluation. Prescriptions: New prednisone 20 mg tablet 40 mg PO DAILY Qty: 10 0RF azithromycin [Zithromax Z-Sedrick] 250 mg tablet See Rx Instructions .ROUTE .COMPLEX Qty: 6 0RF Rx Instructions: take 500 mg today (day 1), then 250 mg for 4 days (days 2-5) amoxicillin-pot clavulanate 875-125 mg tablet 1 tab PO BID Qty: 10 0RF No Action albuterol sulfate 2.5 mg /3 mL (0.083 %) solution for nebulization 2.5 mg inhalation Q4-6H PRN (Reason: bronchospasm) Qty: 75 0RF albuterol sulfate 90 mcg/actuation HFA aerosol inhaler 2 puff inhalation Q4-6H PRN (Reason: shortness of breath or wheezing) Qty: 6.7 0RF prednisone 50 mg tablet 50 mg PO DAILY Qty: 5 0RF albuterol sulfate 90 mcg/actuation HFA aerosol inhaler 2 puff inhalation Q4-6H PRN (Reason: shortness of breath or wheezing) Qty: 8.5 1RF albuterol sulfate 2.5 mg /3 mL (0.083 %) solution for nebulization 2.5 mg inhalation Q4-6H PRN (Reason: shortness of breath or wheezing) Qty: 90 0RF prednisone 50 mg tablet 50 mg PO DAILY Qty: 5 0RF Referrals: [facility] [place] [facility] [Provider Group] Print Language: Vietnamese
[2024-11-28 07:27] VITALS: BP 134/75; PULSE 95; RESP 21; TEMP 36.6; O2SAT 95
--- NOTE | 2024-11-28 07:27 | PC.NURSE ---
Pt speaking full sentences, tight upper airway and lower sun CTA; 95% RA; pt to have one more Duoneb before DC
[2024-11-28] MEDS: Albuterol Sulfate (0.083%) 2.5 MG/3 ML VIAL.NEB 5 MG INHALE (07:40)
[2024-11-28 07:44] VITALS: PULSE 85; RESP 18; O2SAT 95
[2024-11-28 08:17] VITALS: BP 134/75; PULSE 95; RESP 21; TEMP 37; O2SAT 96
== END 2024-11-28 08:18 | disposition home or self-care (01) ==
PROVIDERS: Emergency Provider Emergency Medicine Emergency Medical Services
DX: J45.909 Unspecified asthma, uncomplicated (principal); R06.02 Shortness of breath; F12.90 Cannabis use, unspecified, uncomplicated; R05.9 Cough, unspecified; Z03.818 Encounter for observation for suspected exposure to other biological agents ruled out; Z79.899 Other long term (current) drug therapy
CPT/HCPCS: 0241U; 36415; 71045; 80048; 84484; 85025; 93005; 99284; 99285

== ENCOUNTER → 2024-11-28 00:40 | Outpatient (BNV) | payer SELFPAY | PROVIDERS: Emergency Provider Emergency Medicine Emergency Medical Services; Visit Provider Internal Medicine | DX: R00.0 Tachycardia, unspecified (principal) | CPT/HCPCS: 93010 ==

== ENCOUNTER → 2024-11-28 00:40 | Outpatient (BNV) | payer SELFPAY | PROVIDERS: Visit Provider Radiology Neuroradiology | DX: J98.11 Atelectasis (principal) | CPT/HCPCS: 71045 ==

== ENCOUNTER 2024-12-29 15:30 | Outpatient (AMB) | payer OTHER, SELFPAY ==
--- NOTE | 2024-12-29 15:39 | MHC.OFFVIS ---
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 She [place] [facility] [place] after multiple ED visits for asthma exacerbations. She was given prednisone on three separate occasions, twice in September and once in November with moderate improvements in symptoms. She notes up until this past winter symptoms were relatively controlled. She continues to use albuterol MDI multiple times per day with suboptimal effect. Continues with dyspnea, wheezing, dry cough and chest tightness to many different triggers. She was previously on Flovent many years ago. She reports asthma dx as a child, requiring multiple hospitalizations however never required intubations. She reports environmental allergies, no recent allergy testing. Has a dog at home. 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 She denies any pertinent family history. [facility] Medical History Asthma Social History (Updated 12/29/24 @ 15:45 by Samantha Montalvo LPN) Patient Tobacco Use Status: Never used Tobacco Substance Use Type: Marijuana Review of Systems Const Denies chills, Denies excessive sweating, Denies fever(s), Denies headache(s) and Denies night sweats Eyes Denies dry eyes, Denies irritation and Denies itchy eyes ENT Reports Normal hearing present, Denies headache(s), Denies nasal congestion, Denies nasal discharge, Denies post nasal drip and Denies sore throat Card Denies chest pain, Denies chest pain at rest, Denies chest pain with activity, Denies claudication, Denies leg edema, Denies orthopnea and Denies paroxysmal nocturnal dyspnea Resp Denies chest congestion, Denies excessive phlegm production, Denies pain on inspiration, Denies pain with cough and Denies stridor Musc Denies myalgias Neuro Reports Normal hearing present and Denies headache(s) Endo Denies excessive sweating Kamaljit/Lymph Denies lymphadenopathy Aller/Immun Denies itchy eyes and Denies seasonal rhinorrhea Physical Exam Vital Signs: Last Vital Signs Pulse 100 12/29/24 15:40 Pulse Ox 98 12/29/24 15:40 Oxygen Delivery Method Room Air 12/29/24 15:40 BMI result Body Mass Index 44.7 Const General: cooperative, healthy appearing, comfortable, no acute distress, well developed and alert Nutritional Appearance: obese Orientation/consciousness: patient oriented x3 Limitations: no limitations HEENT Head: Yes normal to inspection, Yes normocephalic and Yes atraumatic Ears: hearing grossly normal bilaterally and external ears normal Eyes General: appearance normal, both eyes and all related structures Eyelids: Yes eyelids normal Sclerae: sclerae normal EOM: EOMs intact bilaterally Neck Neck: Yes normal visual inspection and Yes no lymphadenopathy Lymphatic: no lymphadenopathy noted Chest Chest palpation & inspection: normal inspection of the chest Resp Effort & Inspection: normal respiratory effort, able to speak in complete sentences, no audible wheezes, no cough, no stridor, not tachypneic, no tripod positioning and no use of accessory muscles Auscultation: wheezes Cardio Jugular venous distension: no JVD Rate: regular rate Rhythm: regular rhythm Skin Other: warm, dry General skin exam: no rashes or lesions noted Neuro General: patient oriented x3 Cranial nerves: Yes Normal hearing present Cognition (Neuro): normal cognition Gait exam (Neuro): Normal gait present Extrem General: Yes normal to inspection, Yes capillary refill normal, Yes no clubbing, cyanosis or edema and Yes no pedal edema Psych Appearance: grossly normal and well kempt Speech and movement: Normal speech and movement present and Clear speech present Affect: normal affect Attitude: cooperative Thought process: Normal thought process present Thought content: Normal thought content present Insight: Good insight present (Psych) Judgement: Good judgement present (Psych) Assessment & Plan Assessment & Plan (1) Asthma: Code(s): J45.909 - Unspecified asthma, uncomplicated Category: Medical Qualifiers: Asthma complication type: unspecified Asthma persistence: unspecified Asthma severity: unspecified severity Qualified Code(s): J45.909 - Unspecified asthma, uncomplicated (2) Environmental allergies: Code(s): Z91.09 - Other allergy status, other than to drugs and biological substances Category: Medical (3) Abnormal chest xray: Code(s): R93.89 - Abnormal findings on diagnostic imaging of other specified body structures Category: Medical Plan Fito's symptoms are likely related to poorly controlled asthma, with possible allergic component. Will empirically start Breo in addition to prednisone taper for persistent wheezing on exam. Will send for PFT and RAST. Will repeat CXR in 4 weeks to reassess prior note of right infrahilar atelectasis vs pneumonitis. If persists, will send for CT. All questions were answered and patient is in agreement of plan. Will follow up in 6-8 weeks or sooner if needed. Orders: Orders Immunoglobulin E Today Z91.09 - Other allergy status, other than to drugs and biological substances XR chest 2V Today R93.89 - Abnormal findings on diagnostic imaging of other specified body structures PFT pulmonary function test Today J45.909 - Unspecified asthma, uncomplicated Resp Allergy Profile Region I Today Z91.09 - Other allergy status, other than to drugs and biological substances Complete Blood Count Auto Diff Today Z91.09 - Other allergy status, other than to drugs and biological substances Medications: New fluticasone furoate-vilanterol 100-25 mcg/dose (Breo Ellipta) 1 inh inhalation DAILY 60 ea 3RF prednisone see taper instructions; 40 mg Daily x3 days, 30 mg daily x3 days, 20 mg daily x3 days, 10 mg daily x3 days 10 mg PO DIRECTED 30 tabs 0RF Refilled albuterol sulfate 2.5 mg (3 mL) inhalation Q4-6H PRN 90 mL 0RF shortness of breath or wheezing Discontinued prednisone Discontinued Reason: Patient Completed Course 50 mg PO DAILY 5 tabs 0RF prednisone Discontinued Reason: Patient Completed Course 50 mg PO DAILY 5 tabs 0RF amoxicillin-pot clavulanate 875-125 mg Discontinued Reason: Patient Completed Course 1 tab PO BID 10 tabs 0RF azithromycin (Zithromax Z-Sedrick) Discontinued Reason: Patient Completed Course take 500 mg today (day 1), then 250 mg for 4 days (days 2-5) 6 tabs 0RF prednisone Discontinued Reason: Patient Completed Course 40 mg (2 x 20 mg) PO DAILY 10 tabs 0RF Coding Level of Care Code New Pt Level 4 (64043) Diagnoses Asthma J45.909 Asthma complication type: unspecified Asthma persistence: unspecified Asthma severity: unspecified severity Environmental allergies Z91.09 Abnormal chest xray R93.89
[2024-12-29 15:40] VITALS: PULSE 100; O2SAT 98; BMI 44.7
== END 2024-12-29 16:09 | disposition home or self-care (01) ==
LOC: HO.HPSW 15:31
PROVIDERS: PCP Family Medicine; Referring Provider Physician Assistant; Visit Provider Nurse Practitioner Family
DX: J45.909 Unspecified asthma, uncomplicated (principal); Z91.09 Other allergy status, other than to drugs and biological substances; R93.89 Abnormal findings on diagnostic imaging of other specified body structures
CPT/HCPCS: 99204

== ENCOUNTER → 2024-12-29 15:30 | Outpatient (BNVA) | payer OTHER, SELFPAY | PROVIDERS: PCP Family Medicine; Referring Provider Physician Assistant; Visit Provider Nurse Practitioner Family | DX: J45.909 Unspecified asthma, uncomplicated (principal); R93.89 Abnormal findings on diagnostic imaging of other specified body structures; Z91.09 Other allergy status, other than to drugs and biological substances | CPT/HCPCS: 99202 ==

== ENCOUNTER 2025-02-13 16:05 | Outpatient (REF) | payer OTHER, SELFPAY ==
--- NOTE | 2025-02-13 16:09 | PFT_ITS ---
Indication: Asthma Spirometry [FEV1 to FVC 61 % pre bronchodilator 72% post bronchodilators; FEV1 3.92 L; FVC 5.43L. There was a significant response to bronchodilators noted. To note his FEF 02/27/2075 decreased to 36% predicted ] Lung Volumes [Total lung capacity 105% predicted] Diffusion Capacity [DLCO 108% predicted] Comparisons [None] Interpretation [There is a reversible obstructive ventilatory defect consistent with a diagnosis of asthma. He does have a significant response to bronchodilators noted. Significant small airway disease likely from asthma. Lung volumes and diffusing capacity with normal limits. Clinical correlation warranted.] MTDD
== END 2025-02-13 16:06 | disposition home or self-care (01) ==
LOC: HO.RESP 16:05
PROVIDERS: Visit Provider Nurse Practitioner Family
DX: J45.909 Unspecified asthma, uncomplicated (principal)
CPT/HCPCS: 94010; 94640; 94727; 94729

== ENCOUNTER → 2025-02-13 16:09 | Outpatient (BNV) | payer OTHER, SELFPAY | PROVIDERS: Visit Provider Hospitalist | DX: J45.909 Unspecified asthma, uncomplicated (principal) | CPT/HCPCS: 94060; 94727; 94729 ==

== ENCOUNTER 2025-02-28 15:53 | Outpatient (AMB) | payer OTHER, SELFPAY ==
--- NOTE | 2025-02-28 16:00 | MHC.OFFVIS ---
Vital Signs 02/28/25 16:01 Height 5 ft 8 in Weight 300 lb 6 oz BMI 45.7 BP 118/80 Blood Pressure Location Rt brachial Position Sitting Pulse 74 Pulse Source Pulse Oximeter Pulse Oximetry (%) 99 Oxygen Delivery Method Room Air Intake Visit Reasons: Asthma Allergies No Known Allergies [No Known Allergies*] Allergy (Verified 02/28/25 16:08) HPI HPI Asthma: Details: Fito is a pleasant 24 year old female, never tobacco smoker, current marijuana smoker with underlying childhood asthma. She was [place] [facility] [place] after multiple ED visits for asthma exacerbations. She was given prednisone on three separate occasions, twice in September and once in November with moderate improvements in symptoms. At the last visit she was treated for an asthma exacerbation with prednisone with significant improvement in symptoms and started on Breo 100 mcg. She reports moderate improvement of symptoms however continues with intermittent and dyspnea, wheezing and chest tightness. Today she presents to review PFT results. Of note, patient also sent for RAST testing and chest x-ray at the last visit however unaware of these orders and will have performed later this week. [facility] Medical History Asthma Social History Patient Tobacco Use Status: Never used Tobacco Substance Use Type: Marijuana Review of Systems Const Denies chills, Denies excessive sweating, Denies fever(s), Denies headache(s) and Denies night sweats Eyes Denies dry eyes, Denies irritation and Denies itchy eyes ENT Reports Normal hearing present, Denies headache(s), Denies nasal congestion, Denies nasal discharge, Denies post nasal drip and Denies sore throat Card Denies chest pain, Denies chest pain at rest, Denies chest pain with activity, Denies claudication, Denies leg edema, Denies orthopnea and Denies paroxysmal nocturnal dyspnea Resp Denies chest congestion, Denies excessive phlegm production, Denies pain on inspiration, Denies pain with cough and Denies stridor Musc Denies myalgias Neuro Reports Normal hearing present and Denies headache(s) Endo Denies excessive sweating Kamaljit/Lymph Denies lymphadenopathy Aller/Immun Denies itchy eyes and Denies seasonal rhinorrhea Physical Exam Vital Signs: Last Vital Signs Pulse 74 02/28/25 16:01 BP 118/80 02/28/25 16:01 Pulse Ox 99 02/28/25 16:01 Oxygen Delivery Method Room Air 02/28/25 16:01 BMI result Body Mass Index 45.7 Const General: cooperative, healthy appearing, comfortable, no acute distress, well developed and alert Nutritional Appearance: obese Orientation/consciousness: patient oriented x3 Limitations: no limitations HEENT Head: Yes normal to inspection, Yes normocephalic and Yes atraumatic Ears: hearing grossly normal bilaterally and external ears normal Eyes General: appearance normal, both eyes and all related structures Eyelids: Yes eyelids normal Sclerae: sclerae normal EOM: EOMs intact bilaterally Neck Neck: Yes normal visual inspection and Yes no lymphadenopathy Lymphatic: no lymphadenopathy noted Chest Chest palpation & inspection: normal inspection of the chest Resp Effort & Inspection: normal respiratory effort, able to speak in complete sentences, no audible wheezes, no cough, no stridor, not tachypneic, no tripod positioning and no use of accessory muscles Auscultation: diminished lung sounds Cardio Jugular venous distension: no JVD Rate: regular rate Rhythm: regular rhythm Skin Other: warm, dry General skin exam: no rashes or lesions noted Neuro General: patient oriented x3 Cranial nerves: Yes Normal hearing present Cognition (Neuro): normal cognition Gait exam (Neuro): Normal gait present Extrem General: Yes normal to inspection, Yes capillary refill normal, Yes no clubbing, cyanosis or edema and Yes no pedal edema Psych Appearance: grossly normal and well kempt Speech and movement: Normal speech and movement present and Clear speech present Affect: normal affect Attitude: cooperative Thought process: Normal thought process present Thought content: Normal thought content present Insight: Good insight present (Psych) Judgement: Good judgement present (Psych) Assessment & Plan Assessment & Plan (1) Asthma: Code(s): J45.909 - Unspecified asthma, uncomplicated Category: Medical Qualifiers: Asthma complication type: unspecified Asthma persistence: unspecified Asthma severity: unspecified severity Qualified Code(s): J45.909 - Unspecified asthma, uncomplicated (2) Environmental allergies: Code(s): Z91.09 - Other allergy status, other than to drugs and biological substances Category: Medical Plan Reviewed PFT which revealed a reversible obstructive ventilatory defect consistent with a diagnosis of asthma, with significant response to bronchodilators, suggestive of significant small airway disease likely from asthma. Lung volumes and diffusing capacity with normal limits. Advised to continue albuterol MDI and will increase Breo 100 mcg to 200 mcg. May need to consider Trelegy versus biologic as patient with moderate to severe asthma. Patient aware of prior order for chest x-ray and RAST testing which she will obtain later this week. All questions were answered and patient is in agreement of plan. Will follow-up in 6-8 weeks or sooner reviewed. Medications: New fluticasone furoate-vilanterol 200-25 mcg/dose (Breo Ellipta) 1 inh inhalation DAILY 60 ea 6RF Refilled albuterol sulfate 2.5 mg (3 mL) inhalation Q4-6H PRN 90 mL 6RF shortness of breath or wheezing fluticasone furoate-vilanterol 100-25 mcg/dose (Breo Ellipta) 1 inh inhalation DAILY 60 ea 3RF albuterol sulfate 90 mcg/actuation 2 puffs inhalation Q4-6H PRN 8.5 grams 1RF shortness of breath or wheezing Coding Level of Care Code Est Pt Level 4 (69954) Diagnoses Asthma J45.909 Asthma complication type: unspecified Asthma persistence: unspecified Asthma severity: unspecified severity Environmental allergies Z91.09
[2025-02-28 16:01] VITALS: BP 118/80; PULSE 74; O2SAT 99; BMI 45.7
== END 2025-02-28 16:30 | disposition home or self-care (01) ==
LOC: HO.HPSW 15:54
PROVIDERS: PCP Family Medicine; Visit Provider Nurse Practitioner Family
DX: J45.909 Unspecified asthma, uncomplicated (principal); Z91.09 Other allergy status, other than to drugs and biological substances
CPT/HCPCS: 99214

== ENCOUNTER → 2025-02-28 15:53 | Outpatient (BNVA) | payer OTHER, SELFPAY | PROVIDERS: PCP Family Medicine; Visit Provider Nurse Practitioner Family | DX: J45.909 Unspecified asthma, uncomplicated (principal); Z91.09 Other allergy status, other than to drugs and biological substances | CPT/HCPCS: 99212 ==

== ENCOUNTER 2025-03-26 11:18 | Emergency (ER) | payer OTHER, SELFPAY ==
--- NOTE | ~2025-03-26 | CT_ITS ---
EXAMINATION: CT ABDOMEN AND PELVIS WITH CONTRAST CLINICAL INFORMATION: Left upper quadrant pain. COMPARISON: None available. TECHNIQUE: Multidetector volumetric images were obtained from the superior aspect of the liver through the pubic symphysis following administration 85 mL of Omnipaque 350 intravenous contrast. Sagittal and coronal reformatted images were obtained on the technologist's workstation. Oral contrast: No This CT examination was performed using dose optimization techniques as appropriate, variously including the following: *Automated exposure control *Adjustment of mA and/or kV according to patient size (this includes techniques or standardized protocols for targeted exams where dose is matched to indication/reason for exam; i.e. extremities or head) *Use of iterative reconstruction technique FINDINGS: LUNG BASES: The visualized lung bases are unremarkable. LIVER, GALLBLADDER, AND BILIARY TREE: The liver is normal in size, shape, and attenuation. No focal hepatic lesion or biliary ductal dilatation is present. The gallbladder is unremarkable with no evidence of radiopaque gallstones, gallbladder wall thickening, or obvious pericholecystic inflammatory changes. PANCREAS: Unremarkable. SPLEEN: Unremarkable. ADRENAL GLANDS: Unremarkable. KIDNEYS AND URETERS: The kidneys are normal in size, shape, and attenuation. No hydronephrosis, hydroureter, or calculi seen. No perinephric stranding. BLADDER: Unremarkable. GASTROINTESTINAL TRACT: Normal appendix. The colon is completely decompressed. The small bowel is normal. The stomach, and duodenum appear normal. ABDOMINAL WALL: No significant hernia is appreciated. LYMPH NODES: There are numerous lymph nodes in the central and left upper quadrant mesentery, raising the possibility of mesenteric adenitis. VASCULAR: Unremarkable. PELVIC VISCERA: Unremarkable. OSSEOUS STRUCTURES: Unremarkable. CT/CT abdomen pelvis w IV con IMPRESSION: 1. Possible mesenteric adenitis as detailed. 2. Otherwise, no acute findings in the abdomen or pelvis. Electronically signed by: Jared Quiles MD 03/26/2025 02:48 PM EDT
[2025-03-26 11:29] VITALS: BP 151/82; PULSE 60; O2SAT 99
[2025-03-26 11:31] VITALS: BP 157/85; PULSE 76; RESP 19; TEMP 36.4; O2SAT 100; BMI 45.9
[2025-03-26 12:00] VITALS: BP 157/85; PULSE 72; RESP 23; TEMP 36.4; O2SAT 100
--- NOTE | 2025-03-26 12:07 | ED_ITS ---
HPI - General Adult General Chief complaint: Nausea/Vomiting/Diarrhea Stated complaint: NAUSEA VOMITIING Time Seen by Provider: 03/26/25 12:00 Source: patient, EMS, RN notes reviewed and old records reviewed Mode of arrival: EMS Limitations: no limitations History of Present Illness ED Provider: Joselito HPI narrative: Patient is a 24-year-old female assigned male at presenting to the emergency department with complaint of nausea, vomiting and diarrhea for the past week with associated upper abdominal pain. Denies fevers. Emesis has been non-bloody, non-bilious. Denies chest pain, dyspnea, palpitations. Denies dysuria or other urinary symptoms. MD complaint: abdominal pain Onset (ago): day(s) Related Data Previous Rx's ?Medication ?Instructions ?Recorded albuterol sulfate 2.5 mg/3 mL 2.5 mg (3 mL) inhalation Q4-6H PRN 09/11/24 (0.083 %) solution for nebulization bronchospasm #75 mL albuterol sulfate 90 mcg/actuation 2 puff inhalation Q4-6H PRN 09/11/24 aerosol inhaler shortness of breath or wheezing #6.7 grams albuterol sulfate 2.5 mg/3 mL 2.5 mg (3 mL) inhalation Q4-6H PRN 02/28/25 (0.083 %) solution for nebulization shortness of breath or wheezing #90 mL albuterol sulfate 90 mcg/actuation 2 puff inhalation Q4-6H PRN 02/28/25 aerosol inhaler shortness of breath or wheezing #8.5 grams fluticasone furoate 100 1 inh inhalation DAILY #60 ea 02/28/25 mcg-vilanterol 25 mcg/dose inhalation powder (Breo Ellipta) fluticasone furoate 200 1 inh inhalation DAILY #60 ea 02/28/25 mcg-vilanterol 25 mcg/dose inhalation powder (Breo Ellipta) ondansetron 4 mg disintegrating 4 mg PO Q8H PRN nausea and 03/26/25 tablet vomiting #10 tabs Allergies Allergy/AdvReac Type Severity Reaction Status Date / Time No Known Allergies Allergy Verified 03/26/25 11:37 [No Known Allergies*] Review of Systems 2 Review of Systems: As per HPI Yes all other systems are reviewed and are negative Constitutional: Constitutional: Reports as per HPI PMFSH Past Medical History Medical History Asthma Social History Social History Alcohol intake: current Alcohol intake frequency: a few times a week Alcohol type: beer Patient Tobacco Use Status: Never used Tobacco Smoked in Last 30 Days: No Use of substances other than those prescribed or required for medical reasons: Yes Substance Use Type: Marijuana Substance Use Frequency: Chronic Longstanding Last Used Substance: Hours (ago) Any prior treatment program specific to substance use: No Advance Directives: No Advance Directives Information Provided: Yes Do you have a plan to hurt others: No Plan Physical Exam ED Vital Signs: Vital Signs - 24 hr 03/26/25 11:31 03/26/25 12:00 03/26/25 14:38 Temperature 97.6 F 97.6 F 97.9 F Pulse Rate 76 72 99 Respiratory Rate 19 23 H 18 Blood Pressure 157/85 H 157/85 H 138/71 Pulse Oximetry 100 100 99 Oxygen Delivery Method Room Air Room Air Room Air BMI result Body Mass Index 45.9 Vital signs have been reviewed and appear to be correct. Blood pressure normal. Heart rate normal. Respiratory rate normal. Temperature normal. Oxygen saturation normal. Const General: cooperative, healthy appearing and no acute distress Orientation/consciousness: oriented to person, oriented to place, oriented to time and patient oriented x3 Limitations: no limitations HENMT Head: Yes normocephalic and Yes atraumatic Ears: external ears normal General nose exam: Normal external nose present Face and sinus: Yes face symmetric Mouth: oropharynx normal and moist mucous membranes Throat: Yes uvula midline Eyes Pupils: Equal, round and reactive pupils present Neck Neck: Yes normal visual inspection and Yes supple Resp Effort & Inspection: normal respiratory effort and able to speak in complete sentences Auscultation: clear to auscultation bilaterally Cardio Rate: regular rate Rhythm: regular rhythm Heart sounds: S1 normal heart sound present and S2 normal heart sound present GI Palpation (GI): Soft to palpation and Tenderness to palpation present (GI) in the LUQ Auscultation: normoactive bowel sounds General: Yes no CVA tenderness Back/Spine/Pelvis Back: no CVA tenderness Skin General skin exam: elasticity normal and turgor normal Neuro General: oriented to person, oriented to place, oriented to time, patient oriented x3, moves all extremities, no focal motor deficits and CN's II-XI intact bilaterally Cranial nerves: Yes Equal, round and reactive pupils present Cognition (Neuro): normal cognition Extrem General: Yes full ROM, Yes no pedal edema and Yes no calf tenderness Psych Mental Status: mental status grossly normal Affect: normal affect Thought process: Normal thought process present Medications Administered Discontinued Medications Generic Name Dose Route Start Last Admin Trade Name Kevinq PRN Reason Stop Dose Admin Al Hydroxide/Mg Hydroxide 30 ml 03/26/25 15:50 03/26/25 16:06 Magnesium Hydrox/Alum Hydrox 30 Ml Oral.Susp PO 03/26/25 15:51 30 ml ONCE ONE Administration Sodium Chloride 1,000 mls @ 999 mls/hr 03/26/25 12:15 03/26/25 14:57 Ns IV 03/26/25 13:15 Infused .Q1H1M NEO Infusion Sodium Chloride 1,000 mls @ 999 mls/hr 03/26/25 16:15 03/26/25 17:14 Ns IV 03/26/25 17:15 Infused .Q1H1M NEO Infusion Iohexol 100 ml 03/26/25 14:26 03/26/25 14:27 Iohexol 350 Mg/Ml 100 Ml Infus..Btl IV 03/26/25 14:27 85 ml ONCE ONE Administration Lidocaine HCl 15 ml 03/26/25 15:50 03/26/25 16:06 Lidocaine Hcl Viscous 2 % 15 Ml Solution MUCOUS MEM 03/26/25 15:51 15 ml ONCE ONE Administration Morphine Sulfate 4 mg 03/26/25 12:08 03/26/25 12:20 Morphine Sulfate 4 Mg/Ml Cartridge IVPUSH 03/26/25 12:09 4 mg ONCE ONE Administration Protocol Morphine Sulfate 4 mg 03/26/25 14:02 03/26/25 14:13 Morphine Sulfate 4 Mg/Ml Cartridge IVPUSH 03/26/25 14:03 4 mg ONCE ONE Administration Protocol Ondansetron HCl 4 mg 03/26/25 12:08 03/26/25 12:20 Ondansetron Hcl 4 Mg/2 Ml Vial IVPUSH 03/26/25 12:09 4 mg ONCE ONE Administration Prochlorperazine Edisylate 10 mg 03/26/25 16:12 03/26/25 16:15 Prochlorperazine Edisylate 10 Mg/2 Ml Vial IVPUSH 03/26/25 16:13 10 mg ONCE ONE Administration Medical Decision Making Medical Decision Making [facility] Narrative: Patient is a 24-year-old female assigned male at presenting to the emergency department with complaint of nausea, vomiting and diarrhea for the past week with associated upper abdominal pain. On exam patient is awake, A+Ox3, VS WNL, afebrile, normal neurological exam without focal deficits, physical exam findings as above. Given reported symptoms and physical exam findings, initial differential includes but is not limited to gastritis, PUD, GERD, pancreatitis. Labs notable for no leuokocytosis, no anemia, mildly elevated transaminases with normal direct and Tbili, normal lipase. CT A/P notable for possible mesenteric adenitis, no other acute abnormalities. My interpretation is in agreement with the radiologist's interpretation. Patient medicated with zofran, morphine, and IV fluids. Did require a second dose of morphine for ongoing pain. Patient rates pain at 6/10 after two doses of morphine, will try GI cocktail. Results discussed with patient and all questions answered. Patient unable to tolerate GI cocktail, compazine ordered. Symptoms improved with compazine, patient able to tolerate ice chips. No evidence of infection on UA. Will dc with prescription for zofran. Advised follow up with PCP. Return precautions discussed. Patient verbalized understanding of and agreement with plan. Differential Diagnosis Differential Diagnoses: The differential diagnosis associated with the presentation includes As per [facility] Admission/Observation Consideration of admission/observation: Escalation of care including admission/observation considered Patient would have been admitted to the hospital had their work up had any findings where hospital admission was appropriate and their clinical presentation warranted hospital admission. Lab Data [facility] Lab Attestation statement: I reviewed the patient's lab results. As per [facility] 03/26/25 13:24 03/26/25 13:24 Labs: Lab Results 03/26/25 03/26/25 Range/Units 13:24 17:10 WBC 10.8 (4.8-10.8) X10*3/uL RBC 5.06 (4.60-5.80) X10*6/uL Hgb 15.1 (14.0-18.0) g/dl Hct 43.9 (42.0-52.0) % MCV 86.8 (80.0-98.0) fL MCH 29.8 (27.0-33.0) pg MCHC 34.4 (31.0-36.0) g/dl RDW 12.7 (11.0-16.0) % Plt Count 381 (160-400) X10*3/uL MPV 9.3 L (9.4-12.4) fL Immature Gran % (Auto) 0.3 (0.0-0.4) % Neut % (Auto) 78.8 H (45-73) % Lymph % (Auto) 11.8 L (20-40) % Todd % (Auto) 6.8 (2-11) % Eos % (Auto) 1.7 (0-4) % Baso % (Auto) 0.6 (0-2) % Lymph # (Auto) 1.3 (1.2-4.9) X10*3/uL Todd # (Auto) 0.7 (0.1-1.2) X10*3/uL Eos # (Auto) 0.2 (0.0-0.4) X10*3/uL Baso # (Auto) 0.1 (0.0-0.2) X10*3/uL Abs Immat Gran (auto) 0.03 (0.00-0.03) X10*3/uL Absolute Neuts (auto) 8.5 H (2.0-8.3) x10*3/uL Absolute Nucleated RBC 0.000 (0.0-0.012) X10*3/uL Nucleated RBC % (auto) 0.0 (0.0-0.2) /100WBC Sodium 141 (135-145) mmol/L Potassium 3.7 (3.3-5.1) mmol/L Chloride 110 H (96-108) mmol/L Carbon Dioxide 22 (22-29) mmol/L Anion Gap 13 (12-20) BUN 8 L (9-16) mg/dL Creatinine 0.66 (0.5-1.4) mg/dL Estim Creat Clear Calc 235.9 Estimated GFR > 60 Fasting Glucose 105 H (60-99) mg/dL Lactic Acid 0.8 (0.5-2.0) mmol/L Calcium 9.0 (8.4-10.2) mg/dL Total Bilirubin 0.6 (0.0-1.0) mg/dL Direct Bilirubin 0.3 (0.0-0.5) mg/dL AST 39 H (5-37) U/L ALT 61 H (0-40) U/L Alkaline Phosphatase 84 (39-117) U/L Total Protein 7.0 (6.5-8.0) g/dL Albumin 4.4 (3.5-5.0) g/dL Lipase 24 (8-78) U/L Urine Color Yellow Urine Appearance Clear Urine pH 6.0 (5.0-9.0) Ur Specific [place] >= 1.030 H (1.005-1.025) Urine Protein Trace (Neg-Trace) mg/dL Urine Glucose (UA) Negative (Negative) mg/dL Urine Ketones 40 (Negative) mg/dL Urine Blood Negative (Negative) Urine Nitrite Negative (Negative) Ur Leukocyte Esterase Negative (Negative) Independent Interpretation I performed an independent interpretation of an: CT Scan Interpretation: CT A/P notable for possible mesenteric adenitis, otherwise unremarkable. Radiology Impression Discussion of test interpretation with radiology: I have reviewed the radiologist's reading. Radiologist Impression: CT/CT abdomen pelvis w IV con IMPRESSION: 1. Possible mesenteric adenitis as detailed. 2. Otherwise, no acute findings in the abdomen or pelvis. External Record Review External record reviewed: Inpatient record, Office record and Outpatient record Prescription Management I considered prescription management with: Other Critical Care Time Critical Care Time Critical Care Time: Yes Total Critical Care Time: 44 Attestation: I have personally provided critical care time exclusive of time spent on separately billable procedures. Time includes review of lab data, radiology results, discussion with consultants, and monitoring for potential decompensation. Intervention performed as documented. Discharge Plan Discharge Clinical Impression: Nausea, vomiting, and diarrhea Patient Disposition: Home, Self-Care Instructions: Gastroenteritis (DC), Acute Nausea and Vomiting (DC), Acute Diarrhea (ED) Additional Instructions: You have been evaluated in the emergency department today for nausea, vomiting, and diarrhea. Your evaluation suggests that your symptoms are most likely due to a viral illness which will improve on it's own with rest and fluids. Remember to drink plenty of fluids at home. You are being prescribed ondansetron which you can use as per the prescription instructions for nausea. You can use over the counter Immodium for diarrhea. Please follow up with your primary care provider within two days. Return to the emergency department if you experience worsening or uncontrolled pain, inability to tolerate fluids by mouth, difficulty breathing, fevers 100.4? F or greater, recurrent vomiting, or any other concerning symptoms. Prescriptions: New ondansetron 4 mg tablet,disintegrating 4 mg PO Q8H PRN (Reason: nausea and vomiting) Qty: 10 0RF No Action albuterol sulfate 2.5 mg /3 mL (0.083 %) solution for nebulization 2.5 mg inhalation Q4-6H PRN (Reason: bronchospasm) Qty: 75 0RF albuterol sulfate 90 mcg/actuation HFA aerosol inhaler 2 puff inhalation Q4-6H PRN (Reason: shortness of breath or wheezing) Qty: 6.7 0RF fluticasone furoate-vilanterol [Breo Ellipta] 200-25 mcg/dose blister with device 1 inh inhalation DAILY Qty: 60 6RF albuterol sulfate 2.5 mg /3 mL (0.083 %) solution for nebulization 2.5 mg inhalation Q4-6H PRN (Reason: shortness of breath or wheezing) Qty: 90 6RF albuterol sulfate 90 mcg/actuation HFA aerosol inhaler 2 puff inhalation Q4-6H PRN (Reason: shortness of breath or wheezing) Qty: 8.5 1RF fluticasone furoate-vilanterol [Breo Ellipta] 100-25 mcg/dose blister with device 1 inh inhalation DAILY Qty: 60 3RF Stand Alone Forms: Work/School Release Print Language: Cuban
[2025-03-26] MEDS: 0.9 % Sodium Chloride 1,000 ML 999 ML IV ×2 (12:19→16:14)
[2025-03-26] MEDS: ondansetron HCL 4 MG/2 ML VIAL IVPUSH (12:20)
[2025-03-26] MEDS: Morphine Sulfate 4 MG/ML CARTRIDGE IVPUSH ×2 (12:20→14:13)
[2025-03-26 13:28] LABS: MANUAL DIFF FLAG NO
[2025-03-26 13:33] LABS: Basophils Absolute Auto 0.1 X10*3/uL (0.0-0.2); Basophils Percent Auto 0.6 % (0-2); Eosinophils Absolute Auto 0.2 X10*3/uL (0.0-0.4); Eosinophils Percent Auto 1.7 % (0-4); Hematocrit 43.9 % (42.0-52.0); Hemoglobin 15.1 g/dl (14.0-18.0); Imm Gran Abs Auto 0.03 X10*3/uL (0.00-0.03); Imm Gran Pct Auto 0.3 % (0.0-0.4); Lymphocytes Absolute Auto 1.3 X10*3/uL (1.2-4.9); Lymphocytes Percent Auto 11.8 % (20-40); Mean Corpuscular HGB Conc 34.4 g/dl (31.0-36.0); Mean Corpuscular Hemoglobin 29.8 pg (27.0-33.0); Mean Corpuscular Volume 86.8 fL (80.0-98.0); Mean Platelet Volume 9.3 fL (9.4-12.4); Monocytes Absolute Auto 0.7 X10*3/uL (0.1-1.2); Monocytes Percent Auto 6.8 % (2-11); Neutrophils Absolute Auto 8.5 x10*3/uL (2.0-8.3); Neutrophils Percent Auto 78.8 % (45-73); Platelet Count 381 X10*3/uL (160-400); Red Blood Count 5.06 X10*6/uL (4.60-5.80); Red Cell Distribution Width 12.7 % (11.0-16.0); White Blood Count 10.8 X10*3/uL (4.8-10.8)
[2025-03-26 13:47] LABS: Anion Gap 13 (12-20); Blood Urea Nitrogen 8 mg/dL (9-16); Carbon Dioxide 22 mmol/L (22-29); Chloride 110 mmol/L (96-108); Creatinine Clr Calc Pharmacy 235.9; Estimated Glomerular Filt Rate > 60; Glucose Fasting 105 mg/dL (60-99); Lactic Acid 0.8 mmol/L (0.5-2.0); Potassium 3.7 mmol/L (3.3-5.1); Sodium 141 mmol/L (135-145)
[2025-03-26 14:13] LABS: Alanine Aminotransferase 61 U/L (0-40); Albumin Level 4.4 g/dL (3.5-5.0); Alkaline Phosphatase 84 U/L (39-117); Aspartate Amino Transferase 39 U/L (5-37); Bilirubin Direct 0.3 mg/dL (0.0-0.5); Bilirubin Total 0.6 mg/dL (0.0-1.0); Lipase 24 U/L (8-78)
[2025-03-26] MEDS: iohexoL 350 MG/ML 100 ML INFUS..BTL IV (14:27)
[2025-03-26 14:38] VITALS: BP 138/71; PULSE 99; RESP 18; TEMP 36.6; O2SAT 99
[2025-03-26] MEDS: Lidocaine HCl Viscous 2 % 15 ML SOLUTION MUCOUS MEM (16:06)
[2025-03-26] MEDS: Magnesium Hydrox/Alum Hydrox 30 ML ORAL.SUSP PO (16:06)
--- NOTE | 2025-03-26 16:10 | PC.NURSE ---
Pt vomited GI cocktail meds; provider made aware; pt reporting 8/10 upper abd pain again
[2025-03-26] MEDS: Prochlorperazine Edisylate 10 MG/2 ML VIAL IVPUSH (16:15)
[2025-03-26 17:17] LABS: Appearance Urine Clear; Color Urine Yellow; Glucose Urine UA Negative (Negative); Leukocyte Esterase Urine Negative (Negative); Nitrite Urine Negative (Negative); Specific Gravity - Urine >= 1.030 (1.005-1.025); Urine Blood Negative (Negative); Urine Ketones 40 mg/dL (Negative); Urine Protein Trace mg/dL (Neg-Trace)
[2025-03-26 17:37] LABS: Bacteria Urine None Seen (None Seen); Hyaline Casts Urine 0-2 /LPF (0-2); RBC Urine 0-2 /HPF (0-2); WBC Urine 0-5 /HPF (0-5)
[2025-03-26 17:48] VITALS: BP 129/66; PULSE 82; RESP 16; TEMP 36.7; O2SAT 97
[2025-03-26 17:49] VITALS: BP 129/66; PULSE 82; RESP 16; TEMP 36.7; O2SAT 97
== END 2025-03-26 17:49 | disposition home or self-care (01) ==
PROVIDERS: Registered Nurse Emergency; Emergency Provider Emergency Medicine Emergency Medical Services
DX: R11.2 Nausea with vomiting, unspecified (principal); R19.7 Diarrhea, unspecified; R10.10 Upper abdominal pain, unspecified; Z79.899 Other long term (current) drug therapy
CPT/HCPCS: 36415; 74177; 80048; 80076; 81001; 83605; 83690; 85025; 96361; 96374; 96375; 96376; 99284; J0737; J2270; J2405; Q9967

== ENCOUNTER → 2025-03-26 12:09 | Outpatient (BNV) | payer OTHER, SELFPAY | PROVIDERS: Emergency Provider Emergency Medicine Emergency Medical Services; Visit Provider Radiology Diagnostic Radiology | DX: R10.12 Left upper quadrant pain (principal) | CPT/HCPCS: 74177 ==

== ENCOUNTER 2025-04-20 15:49 | Outpatient (AMB) | payer OTHER, SELFPAY ==
--- NOTE | 2025-04-20 15:52 | MHC.OFFVIS ---
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: No Vocational Training Director: Vocational Training Director offered & declined Accompanied by: Self / Same As Patient Allergies No Known Allergies (No Known Allergies*) Allergy (Verified 04/20/25 15:55) Medication List - Last Reconciled 04/20/25 by Samantha Montalvo LPN albuterol sulfate 2.5 mg (3 mL) inhalation Q4-6H PRN albuterol sulfate 90 mcg/actuation 2 puffs inhalation Q4-6H PRN albuterol sulfate 2.5 mg (3 mL) inhalation Q4-6H PRN albuterol sulfate 90 mcg/actuation 2 puffs inhalation Q4-6H PRN fluticasone furoate-vilanterol 100-25 mcg/dose (Breo Ellipta) 1 inh inhalation DAILY fluticasone furoate-vilanterol 200-25 mcg/dose (Breo Ellipta) 1 inh inhalation DAILY ondansetron 4 mg PO Q8H PRN HPI HPI Asthma: Details: Fito is a pleasant 24 year old female, never tobacco smoker, current marijuana smoker with underlying childhood asthma. She was initially referred by [facility] ED for pulmonary evaluation after multiple ED visits for asthma exacerbations. She was given prednisone on three separate occasions, twice in September and once in November with moderate improvements in symptoms. At the last visit Breo was increased from 100 mcg to 200 mcg and reports overall improvements. She continues to use albuterol MDI PRN for dyspnea, multiple times per week however would like to continue at this dose. Denies wheezing or chest tightness. Of note, patient also sent for RAST testing and chest x-ray agreeable to obtain at the last visit however forgot and will plan on performing in the next few weeks. [facility] Medical History Asthma Social History Alcohol intake: current Alcohol intake frequency: a few times a week Alcohol type: beer Patient Tobacco Use Status: Never used Tobacco Substance Use Type: Marijuana Review of Systems Const Denies chills, Denies excessive sweating, Denies fever(s), Denies headache(s) and Denies night sweats Eyes Denies dry eyes, Denies irritation and Denies itchy eyes ENT Reports Normal hearing present, Denies headache(s), Denies nasal discharge, Denies post nasal drip and Denies sore throat Card Denies chest pain, Denies chest pain at rest, Denies chest pain with activity, Denies claudication, Denies leg edema, Denies orthopnea and Denies paroxysmal nocturnal dyspnea Resp Denies chest congestion, Denies cough, Denies excessive phlegm production, Denies pain on inspiration, Denies pain with cough, Denies stridor and Denies wheezing Musc Denies myalgias Neuro Reports Normal hearing present and Denies headache(s) Endo Denies excessive sweating Kamaljit/Lymph Denies lymphadenopathy Aller/Immun Denies itchy eyes, Denies seasonal rhinorrhea and Denies wheezing Physical Exam Vital Signs: Last Vital Signs Pulse 101 H 04/20/25 15:54 BP 130/68 04/20/25 15:54 Pulse Ox 99 04/20/25 15:54 Oxygen Delivery Method Room Air 04/20/25 15:54 BMI result Body Mass Index 43.2 Const General: cooperative, healthy appearing, comfortable, no acute distress, well developed and alert Nutritional Appearance: obese Orientation/consciousness: patient oriented x3 Limitations: no limitations HEENT Head: Yes normal to inspection, Yes normocephalic and Yes atraumatic Ears: hearing grossly normal bilaterally and external ears normal Eyes General: appearance normal, both eyes and all related structures Eyelids: Yes eyelids normal Sclerae: sclerae normal EOM: EOMs intact bilaterally Neck Neck: Yes normal visual inspection and Yes no lymphadenopathy Lymphatic: no lymphadenopathy noted Chest Chest palpation & inspection: normal inspection of the chest Resp Effort & Inspection: normal respiratory effort, able to speak in complete sentences, no audible wheezes, no cough, no stridor, not tachypneic, no tripod positioning and no use of accessory muscles Auscultation: diminished lung sounds Cardio Jugular venous distension: no JVD Rate: regular rate Rhythm: regular rhythm Skin Other: warm, dry General skin exam: no rashes or lesions noted Neuro General: patient oriented x3 Cranial nerves: Yes Normal hearing present Cognition (Neuro): normal cognition Gait exam (Neuro): Normal gait present Extrem General: Yes normal to inspection, Yes capillary refill normal, Yes no clubbing, cyanosis or edema and Yes no pedal edema Psych Appearance: grossly normal and well kempt Speech and movement: Normal speech and movement present and Clear speech present Affect: normal affect Attitude: cooperative Thought process: Normal thought process present Thought content: Normal thought content present Insight: Good insight present (Psych) Judgement: Good judgement present (Psych) Assessment & Plan Assessment & Plan (1) Asthma: Code(s): J45.909 - Unspecified asthma, uncomplicated Category: Medical Qualifiers: Asthma complication type: unspecified Asthma persistence: unspecified Asthma severity: unspecified severity Qualified Code(s): J45.909 - Unspecified asthma, uncomplicated (2) Environmental allergies: Code(s): Z91.09 - Other allergy status, other than to drugs and biological substances Category: Medical Plan Advised to continue albuterol MDI and Breo 200 mcg, discussed switching to Trelegy however she would like to hold off. Patient aware of prior order for chest x-ray and RAST testing which she will obtain later this week. She reports ongoing nasal congestion, recommended trial of daily antihistamine. All questions were answered and patient is in agreement of plan. Will follow-up in 2-3 months or sooner reviewed. Medications: Refilled albuterol sulfate 90 mcg/actuation 2 puffs inhalation Q4-6H PRN 8.5 grams 1RF shortness of breath or wheezing Coding Level of Care Code Est Pt Level 3 (85243) Diagnoses Asthma J45.909 Asthma complication type: unspecified Asthma persistence: unspecified Asthma severity: unspecified severity Environmental allergies Z91.09
[2025-04-20 15:54] VITALS: BP 130/68; PULSE 101; O2SAT 99; BMI 43.2
== END 2025-04-20 16:09 | disposition home or self-care (01) ==
LOC: HO.HPSW 15:50
PROVIDERS: PCP Family Medicine; Visit Provider Nurse Practitioner Family
DX: J45.909 Unspecified asthma, uncomplicated (principal); Z91.09 Other allergy status, other than to drugs and biological substances
CPT/HCPCS: 99213

== ENCOUNTER → 2025-04-20 15:49 | Outpatient (BNVA) | payer OTHER, SELFPAY | PROVIDERS: PCP Family Medicine; Visit Provider Nurse Practitioner Family | DX: J45.909 Unspecified asthma, uncomplicated (principal); Z91.09 Other allergy status, other than to drugs and biological substances | CPT/HCPCS: 99212 ==

== ENCOUNTER 2025-04-26 14:35 | Outpatient (AMB) | payer OTHER, SELFPAY ==
[2025-04-26 14:39] VITALS: BP 136/72; BMI 43.3
--- NOTE | 2025-04-26 14:39 | A.OFFPC_ITS ---
Vital Signs 04/26/25 14:39 Height 5 ft 8 in Weight 285 lb 2 oz BMI 43.3 BP 136/72 Blood Pressure Location Lt brachial Position Sitting Pulse Source Pulse Oximeter Oxygen Delivery Method Room Air Intake Visit Reasons: establish care Director Stage Required: No Accompanied by: Self / Same As Patient Allergies No Known Allergies (No Known Allergies*) Allergy (Verified 04/26/25 14:52) Medication List - Last Reconciled 04/26/25 by Sophia Echols PA-C albuterol sulfate 2.5 mg (3 mL) inhalation Q4-6H PRN albuterol sulfate 90 mcg/actuation 2 puffs inhalation Q4-6H PRN albuterol sulfate 2.5 mg (3 mL) inhalation Q4-6H PRN albuterol sulfate 90 mcg/actuation 2 puffs inhalation Q4-6H PRN fluticasone furoate-vilanterol 100-25 mcg/dose (Breo Ellipta) 1 inh inhalation DAILY fluticasone furoate-vilanterol 200-25 mcg/dose (Breo Ellipta) 1 inh inhalation DAILY ondansetron 4 mg PO Q8H PRN Tobacco use date assessed: 04/26/25 Dental Screening Dental Screen Date: 04/26/25 Did you have a dental visit in the last 12 months?: No Did you have a dental problem in the last 6 months where you did not have access to dental care?: No Was dental information given to patient?: No HPI establish care HPI Details 24-year-old female with past medical his tory of asthma and environmental allergies coming to the office for the 1st time. In review of the notes, patient was seen by pulmonology 04/2025 for asthma advised to continue on albuterol and Breo at this time. Presenting for a first-time visit to establish care and address ongoing management of asthma and environmental allergies. The patient has a history of asthma and was last seen by pulmonology in April 2025, where she was advised to continue using albuterol and Breo. The patient screened positive for both depression and anxiety during the visit. She reports a history of depression and anxiety but feels she is on a better mental journey recently. The patient uses albuterol inhaler, Breo inhaler, and albuterol for nebulizer. She also takes estradiol and spironolactone for her transition. She does not smoke tobacco but occasionally uses marijuana. [facility] Medical History Asthma Social History Alcohol intake: current Alcohol intake frequency: a few times a week Alcohol type: beer Patient Tobacco Use Status: Never used Tobacco Substance Use Type: Marijuana Questionnaire PHQ-9 Over the last 2 weeks, how often have you been bothered by any of the following problems? 1. Little interest or pleasure in doing things: not at all 2. Feeling down, depressed, or hopeless: several days 3. Trouble falling or staying asleep, or sleeping too much: several days 4. Feeling tired or having little energy: several days 5. Poor appetite or overeating: more than half the days 6. Feeling bad about yourself - or that you are a failure or have let yourself or your family down: several days 7. Trouble concentrating on things, such as reading the newspaper or watching television: not at all 8. Moving or speaking so slowly that other people could have noticed. Or the opposite - being so fidgety or restless that you have been moving around a lot more than usual: not at all 9. Thoughts that you would be better off or of hurting yourself in some way: not at all Total score: 6 Depression Screening Interpretation: Positive Depression Screening Follow-up: Existing condition and Declines treatment Depression Screening Done: Yes 57777 - PHQ-9 Billing: Yes Source: Developed by Drs. Ron Peña, Kay Cardenas, Norman Singer and colleagues, with an educational merritt from [employer]. Thrive Questionnaire Date Thrive assessed: 04/26/25 I am a: Patient What is your living situation today?: I have a steady place to live Within the past 12 months, did the food you bought not last and you didn't have the money to get more?: Never true Within the past 12 months, did you worry whether your food would run out before you got money to buy more?: Never true Do you have trouble paying for medicines?: No Do you have trouble getting transportation to medical appointments?: No Do you have trouble paying your heating and electricity bill?: No Do you have trouble taking care of your child, family member or friend?: No Do you have trouble with day-to-day activities such as bathing, preparing meals, shopping, managing finances, etc.?: No Are you currently unemployed and looking for a job?: Yes Are you interested in more education?: Yes Please select the resources that you would like help with: None Currently or been in a relationship where the following occur: No concerns reported THRIVE Score: 0 AUDIT C Alcohol Use Questionnaire (AUDIT-C) 1. How often do you have a drink containing alcohol?: Monthly or less 2. How many drinks containing alcohol do you have on a typical day when you are drinking?: 1 or 2 3. How often do you have six or more drinks on one occasion?: Never Total Score: 1 MIKHAIL-7 AMB Questionnaire MIKHAIL-7 Date MIKHAIL - 7 assessed: 04/26/25 Feeling nervous, anxious, or on edge: 1 = Several days Not being able to stop or control worryin = Several days Worrying too much about different things: 1 = Several days Trouble relaxin = Several days Being so restless that it is hard to sit still: 1 = Several days Becoming easily annoyed or irritable: 1 = Several days Feeling afraid as if something awful might happen: 0 = Not at all Total MIKHAIL-7 score (0-4 normal; 5-9 mild; 10-14 moderate; 15-21 severe): 6 Source: Developed by Drs. Ron Peña, Kay Cardenas, Norman Singer and colleagues, with an educational merritt from [employer]. MIKHAIL-7 Assessment Billing MIKHAIL-7 Assessment Tool: MIKHAIL-7 Assessment 93024 Review of Systems Const Denies body aches, Denies chills, Denies fever(s), Denies headache(s) and Denies poor appetite Eyes Reports no additional complaints ENT Denies dysphagia, Denies dizziness, Denies headache(s) and Denies odynophagia Card Denies chest pain, Denies syncope, Denies edema, Denies irregular heart rhythm, Denies lightheadedness and Denies dyspnea Resp Denies cough and Denies dyspnea GI Denies abdominal pain, Denies constipation, Denies dysphagia, Denies diarrhea, Denies nausea, Denies odynophagia and Denies vomiting Reports no additional complaints Musc Reports no additional complaints and Denies abnormal gait Skin/Breast Reports system reviewed and no additional complaints, except as documented Neuro Denies abnormal gait, Denies dizziness, Denies syncope and Denies headache(s) Psych Reports no additional complaints Physical exam (Primary Care) Vital Signs: Last Vital Signs BP 136/72 04/26/25 14:39 Oxygen Delivery Method Room Air 04/26/25 14:39 BMI result Body Mass Index 43.3 Tobacco/Smoking Status: Tobacco use Status Tobacco use date assessed 04/26/25 04/26/25 14:44 Patient Tobacco Use Status Never used Tobacco 04/26/25 14:44 PHQ-9: PHQ-9 Score PHQ-9: Total score 6 04/26/25 15:01 Depression Screening Interpretation: Positive Depression Screening Follow-up: Existing condition and Declines treatment Thrive Assessment: Date of Thrive Assessment Date Thrive assessed 04/26/25 04/26/25 14:44 Currently or been in a relationship where the following occur: No concerns reported Const General: cooperative, healthy appearing, comfortable and no acute distress Orientation/consciousness: patient oriented x3 HENMT Head: Yes normocephalic Ears: hearing grossly normal bilaterally General nose exam: Normal external nose present Eyes General: appearance normal, both eyes and all related structures Conjunctivae: conjunctivae normal Neck Neck: Yes full ROM and Yes no lymphadenopathy Resp Effort & Inspection: normal respiratory effort Auscultation: clear to auscultation bilaterally, no crackles, no rales, no rhonchi and no wheezes Cardio Rate: regular rate Rhythm: regular rhythm Skin General skin exam: no rashes or lesions noted Neuro General: patient oriented x3 Gait exam (Neuro): Normal gait present Extrem General: Yes normal to inspection, Yes full ROM and No edema Psych Affect: normal affect Attitude: cooperative Insight: Good insight present (Psych) Judgement: Good judgement present (Psych) Coding Level of Care Code New Pt Level 4 (82517) Diagnoses Depression F32.A Anxiety F41.9 Asthma J45.909 Asthma complication type: unspecified Asthma persistence: unspecified Asthma severity: unspecified severity Environmental allergies Z91.09 Gender dysphoria F64.9 Additional Codes MIKHAIL-7 Assessment Billing - MIKHAIL-7 Assessment Tool: MIKHAIL-7 Assessment 51361 ([id number]) PHQ-9 - 02156 - PHQ-9 Billing: Yes ([id number]) Assessment & Plan Assessment & Plan (1) Depression: Code(s): F32.A - Depression, unspecified Category: Medical Plan: Patient reports past history of anxiety and depression but feels her symptoms a re well managed at this time. She is declining medical management and counseling at this time. (2) Anxiety: Code(s): F41.9 - Anxiety disorder, unspecified Category: Medical Plan: See above (3) Asthma: Code(s): J45.909 - Unspecified asthma, uncomplicated Category: Medical Qualifiers: Asthma complication type: unspecified Asthma persistence: unspecified Asthma severity: unspecified severity Qualified Code(s): J45.909 - Unspecified asthma, uncomplicated Plan: Asthma currently controlled on present medications. Continue on Breo and albuterol as needed. Avoid triggers such as allergies. Continue to follow with pulmonology (4) Environmental allergies: Code(s): Z91.09 - Other allergy status, other than to drugs and biological substances Category: Medical Plan: continue with OTC allergy medication (5) Gender dysphoria: Code(s): F64.9 - Gender identity disorder, unspecified Category: Medical Plan: Patient states she is currently on estradiol and believes to be spironolactone. She will provide the doses of these medications to us and I will refill the medications. Plan The patient will continue using albuterol and Breo for asthma management as previously advised by pulmonology. It is important to monitor the frequency of albuterol use and adjust as necessary to maintain optimal asthma control. For depression and anxiety, the patient is currently not seeking medication or counseling, as she feels her mental health is improving. Continued engagement in meditation and hiking is encouraged as part of her mental health strategy. The patient is advised to monitor her blood glucose levels and focus on dietary modifications to address the prediabetic range of fasting glucose. Weight management through diet and exercise is recommended. Repeat liver function tests and a hepatitis B profile are planned to assess the elevated liver enzymes, which may be related to a recent illness. The patient is reminded to complete these labs at her convenience. Plan to follow up for next annual physical next year. This note was constructed using voice recognition software. While every effort has been made to ensure accuracy and director of exhibit development, still areas may have been included sometimes these areas may affect the content or meeting of the given symptoms. Total time spent caring for the patient today was 30 minutes. This includes time spent before the visit reviewing the chart, time spent during the visit, and time spent after the visit and documentation. Patient was informed and verbally consented to the use of an ambient scribe for clinic note documentation during this visit. Orders: Orders Hepatitis B,C Profile Today R79.89 - Other specified abnormal findings of blood chemistry Hemoglobin A1c Today Z13.1 - Encounter for screening for diabetes mellitus Liver Panel Today R79.89 - Other specified abnormal findings of blood chemistry Medications: Discontinued ondansetron Discontinued Reason: Patient no longer taking 4 mg PO Q8H PRN 10 tabs 0RF nausea and vomiting albuterol sulfate Discontinued Reason: Patient no longer taking 2.5 mg (3 mL) inhalation Q4-6H PRN 75 mL 0RF bronchospasm albuterol sulfate 90 mcg/actuation Discontinued Reason: Patient no longer taking 2 puffs inhalation Q4-6H PRN 6.7 grams 0RF shortness of breath or wheezing fluticasone furoate-vilanterol 100-25 mcg/dose (Breo Ellipta) Discontinued Reason: Patient no longer taking 1 inh inhalation DAILY 60 ea 3RF
== END 2025-04-26 15:16 | disposition home or self-care (01) ==
LOC: HO.HMCH 14:35
DX: F32.A Depression, unspecified (principal); F41.9 Anxiety disorder, unspecified; J45.909 Unspecified asthma, uncomplicated; Z91.09 Other allergy status, other than to drugs and biological substances; F64.9 Gender identity disorder, unspecified

== ENCOUNTER → 2025-04-26 14:35 | Outpatient (BNVA) | payer OTHER, SELFPAY | DX: J45.909 Unspecified asthma, uncomplicated (principal); F32.A Depression, unspecified; F41.9 Anxiety disorder, unspecified; F64.9 Gender identity disorder, unspecified; R79.89 Other specified abnormal findings of blood chemistry; Z91.09 Other allergy status, other than to drugs and biological substances; Z79.899 Other long term (current) drug therapy | CPT/HCPCS: 96127; 99202 ==

== ENCOUNTER 2025-07-04 11:34 | Emergency (ER) | payer OTHER, SELFPAY ==
--- NOTE | ~2025-07-04 | XR_ITS ---
EXAMINATION: XR CHEST CLINICAL INFORMATION: sob COMPARISON: November 28 2024 TECHNIQUE: Frontal view of the chest was obtained. FINDINGS: No significant abnormality is noted involving the heart, lungs, mediastinum, bony thorax or soft tissues. XR/XR chest 1V IMPRESSION: No acute disease Electronically signed by: Brian Molina MD 07/04/2025 12:40 PM EDT RP
--- NOTE | 2025-07-04 11:43 | PC.RT ---
Pt seen by RT. Pt l/s clear inspiratory w/ rhonchi expiratory. Pt 98% on RA, RR 15. Pt receiving breathing tx per [facility].
[2025-07-04 11:45] VITALS: BP 127/76; BP 131/78; PULSE 108; PULSE 99; RESP 18; TEMP 36.7; O2SAT 93; O2SAT 95; BMI 45.4
[2025-07-04 11:49] VITALS: BP 127/76; PULSE 108; RESP 18; TEMP 36.7; O2SAT 95
--- NOTE | 2025-07-04 12:13 | ED_ITS ---
HPI - SOB/Dyspnea General Chief Complaint: Dyspnea Stated Complaint: sob,neb not working,wheezing,tight chest,neb now Time Seen by Provider: 07/04/25 12:03 Source: patient, EMS and old records reviewed Mode of arrival: EMS Limitations: no limitations History of Present Illness ED Provider: DR. Luna HPI Narrative: 25-year-old assigned male at like to be called as female with history of asthma, history of smoking marijuana, no history of tobacco smoker had multiple ED visits for asthma exacerbation presented for evaluation of shortness of breath and wheezing and coughing with clear sputum. no fever, no chills, no lower extremity swelling, no prolonged immobilization. Related Data Previous Rx's ?Medication ?Instructions ?Recorded albuterol sulfate 2.5 mg/3 mL 2.5 mg (3 mL) inhalation Q4-6H PRN 02/28/25 (0.083 %) solution for nebulization shortness of breat h or wheezing #90 mL fluticasone furoate 200 1 inh inhalation DAILY #60 e a 02/28/25 mcg-vilanterol 25 mcg/dose inhalation powder (Breo Ellipta) spironolactone 50 mg tablet 75 mg (1.5 x 50 mg) PO BID 90 days 04/27/25 #270 tabs estradiol 2 mg tablet 3 mg (1.5 x 2 mg) PO BID 30 days 06/07/25 #90 tabs albuterol sulfate 90 mcg/actuation 2 puff inhalation Q 4-6H PRN 06/13/25 aerosol inhaler shortness of breath or wheez ing #18 grams prednisone 20 mg tablet 20 mg PO BID #10 tabs Allergies Allergy/AdvReac Type Severity Reaction Status Date / Time No Known Allergies (No Known Allergy Verified 07/04/25 11:48 Allergies*) Review of Systems 2 Review of Systems: All other systems are reviewed and are negative Constitutional: Reports as per HPI and Reports no additional constitutional complaints Eyes: Reports as per HPI and Reports no additional eye complaints Reports system reviewed and no additional complaints, except as documented Cardiovascular: Reports as per HPI and Reports no additional cardiovascular complaints Respiratory: Reports as per HPI and Reports no additional respiratory complaints Gastrointestinal: Reports as per HPI and Reports no additional gastrointestinal complaints Genitourinary: Reports no additional female genitourinary complaints Musculoskeletal: Reports no additional musculoskeletal complaints Skin/Breast: Reports system reviewed and no additional complaints, except as docu Psychiatric: Reports no additional psychiatric complaints Endocrine: Reports no additional endocrine complaints Hematologic/Lymphatic: Reports no additional hematologic/lymphatic complaints Allergic/Immunologic: Reports no additional allergic/immunologic complaints Reports system reviewed and no additional complaints, except as documented and Reports Abnormal speech present [facility] Past Medical History Medical History Asthma Social History Social History Alcohol intake: current Alcohol intake frequency: a few times a week Alcohol type: beer Patient Tobacco Use Status: Never used Tobacco Smoked in Last 30 Days: Yes Use of substances other than those prescribed or required for medical reasons: No Substance Use Type: Marijuana Advance Directives: No Advance Directives Information Provided: Yes Do you have a plan to hurt others: No Plan Physical Exam 2 Vital Signs: Vital Signs: Last Vital Signs Temp 98.0 F 07/04/25 11:49 Pulse 88 07/04/25 12:31 Resp 16 07/04/25 12:31 BP 127/76 07/04/25 11:49 Pulse Ox 98 07/04/25 13:22 O2 Del Method Room Air 07/04/25 13:22 BMI result Body Mass Index 45.4 Vital signs have been reviewed and appear to be correct. Blood pressure elevated. Heart rate normal. Respiratory rate normal. Temperature normal. Oxygen saturation normal. Appearance: Alert. Oriented X3. No acute distress. Head: Normal external exam. Normocephalic. Atraumatic. No Wilson signs noted. No raccoon eyes noted Eyes: PERRLA. EOMI. Conjunctiva and sclera normal. Eyelids normal. ENT: TM's Normal. Pharynx normal. Uvula midline. Moist mucous membranes. No trismus noted. No drooling noted. No muffled voice noted. Neck: Normal inspection. Neck supple. FROM. No adenopathy. Thyroid Normal. No meningeal signs. No neck mass noted. CVS: Normal heart rate and rhythm. Heart sound normal. No murmurs noted. Pulses normal throughout. Respiratory: No respiratory distress. Painless inspiration. Breath sounds normal. Diffuse expiratory wheezing with prolonged expiration. No accessory muscle usage noted or decreased air movement noted. Abdomen: Soft and nontender. Bowel sounds normal in all 4 quadrants. No distention noted. No organomegaly noted. No visible injury noted. Back: No CVA tenderness. Full range of motion noted. Skin: Skin warm and dry. Normal skin color. Normal skin turgor. No rashes/lesions/lacerations noted. Extremities: No lower extremity edema. Extremities exhibit normal range of motion. Extremities nontender. Neuro: Oriented X 3. Cranial nerve exam: II-XII are grossly intact No motor deficit. No sensory deficit. Reflexes normal. Course Reevaluation(s) Reevaluation #1: Acute asthma exacerbation, patient now feels better, no history of PE/DVT, no risk for DVT or pulmonary embolism, post exertional O2 sat in the emergency department is 98% will discharge the patient on prednisone x5 days, otherwise patient has enough bronchodilator at home. Time: 13:41 Medications Administered Discontinued Medications Generic Name Dose Route Start Last Admin Trade Name Freq PRN Reason Stop Dose Admin Albuterol Sulfate 2.5 mg/ 5 mg 07/04/25 12:26 07/04/25 12:31 Albuterol Sulfate 2.5 mg INHALE 07/04/25 12:27 5 mg ONCE ONE Administration Methylprednisolone Sodium Succinate 125 mg 07/04/25 12:10 07/04/25 12:26 Methylprednisolone Sod Succ 125 Mg/2 Ml Vial IVPUSH 07/04/25 12:11 125 mg ONCE ONE Administration Medical Decision Making Differential Diagnosis Differential Diagnoses: The differential diagnosis associated with the presentation includes (Pneumonia, pneumothorax, pleural effusion, asthma exacerbation, upper respiratory viral infection,) Admission/Observation Consideration of admission/observation: Escalation of care including admission/observation considered Lab Data MDM Lab Attestation statement: I reviewed the patient's lab results. 07/04/25 12:35 07/04/25 12:35 Labs: Lab Results 07/04/25 Range/Units 12:35 WBC 6.9 (4.8-10.8) X10*3/uL RBC 4.83 (4.60-5.80) X10*6/uL Hgb 15.0 (14.0-18.0) g/dl Hct 43.5 (42.0-52.0) % MCV 90.1 (80.0-98.0) fL MCH 31.1 (27.0-33.0) pg MCHC 34.5 (31.0-36.0) g/dl RDW 13.3 (11.0-16.0) % Plt Count 377 (160-400) X10*3/uL MPV 9.1 L (9.4-12.4) fL Immature Gran % (Auto) 0.1 (0.0-0.4) % Neut % (Auto) 62.7 (45-73) % Lymph % (Auto) 20.3 (20-40) % [place] % (Auto) 10.6 (2-11) % Eos % (Auto) 5.7 H (0-4) % Baso % (Auto) 0.6 (0-2) % Lymph # (Auto) 1.4 (1.2-4.9) X10*3/uL [place] # (Auto) 0.7 (0.1-1.2) X10*3/uL Eos # (Auto) 0.4 (0.0-0.4) X10*3/uL Baso # (Auto) 0.0 (0.0-0.2) X10*3/uL Abs Immat Gran (auto) 0.01 (0.00-0.03) X10*3/uL Absolute Neuts (auto) 4.3 (2.0-8.3) x10*3/uL Absolute Nucleated RBC 0.000 (0.0-0.012) X10*3/uL Nucleated RBC % (auto) 0.0 (0.0-0.2) /100WBC Sodium 140 (135-145) mmol/L Potassium 3.8 (3.3-5.1) mmol/L Chloride 108 (96-108) mmol/L Carbon Dioxide 24 (22-29) mmol/L Anion Gap 12 (12-20) BUN 10 (9-16) mg/dL Creatinine 0.70 (0.5-1.4) mg/dL Estim Creat Clear Calc 212.3 Estimated GFR > 60 Random Glucose 90 (60-115) mg/dL Calcium 9.6 D (8.4-10.2) mg/dL Influenza Type A (PCR) NEGATIVE (Negative) Influenza Type B (PCR) NEGATIVE (Negative) RSV RNA Qual (PCR) NEGATIVE (Negative) SARS-CoV-2 RNA (RT-PCR) NEGATIVE (Negative) Independent Interpretation I performed an independent interpretation of an: Plain X-Ray (Chest: No acute intrathoracic pathology.) Radiology Impression Discussion of test interpretation with radiology: I have reviewed the radiologist's reading. Discharge Plan Discharge Clinical Impression: Asthma with exacerbation Patient Disposition: Home, Self-Care Instructions: Asthma (ED) Prescriptions: New prednisone 20 mg tablet 20 mg PO BID Qty: 10 0RF No Action spironolactone 50 mg tablet 75 mg PO BID 90 Days Qty: 270 0RF estradiol 2 mg tablet 3 mg PO BID 30 Days Qty: 90 0RF albuterol sulfate 90 mcg/actuation HFA aerosol inhaler 2 puff inhalation Q4-6H PRN (Reason: shortness of breath or wheezing) Qty: 18 1RF fluticasone furoate-vilanterol [Breo Ellipta] 200-25 mcg/dose blister with device 1 inh inhalation DAILY Qty: 60 6RF albuterol sulfate 2.5 mg /3 mL (0.083 %) solution for nebulization 2.5 mg inhalation Q4-6H PRN (Reason: shortness of breath or wheezing) Qty: 90 6RF Referrals: Sophia Echols PA-C [Primary Care Provider, Internal Medicine] Print Language: Belgian
[2025-07-04 12:31] VITALS: PULSE 88; RESP 16; O2SAT 95
[2025-07-04] MEDS: Albuterol Sulfate 2.5 MG, Albuterol Sulfate (0.083%) 2.5 MG 5 MG INHALE (12:31)
[2025-07-04 12:40] LABS: MANUAL DIFF FLAG NO
[2025-07-04 12:42] LABS: Hematocrit 43.5 % (42.0-52.0); Hemoglobin 15.0 g/dl (14.0-18.0); Imm Gran Abs Auto 0.01 X10*3/uL (0.00-0.03); Imm Gran Pct Auto 0.1 % (0.0-0.4); Lymphocytes Absolute Auto 1.4 X10*3/uL (1.2-4.9); Mean Corpuscular HGB Conc 34.5 g/dl (31.0-36.0); Mean Corpuscular Hemoglobin 31.1 pg (27.0-33.0); Mean Corpuscular Volume 90.1 fL (80.0-98.0); NRBC Abs Auto 0.000 X10*3/uL (0.0-0.012); NRBC Pct Auto 0.0 /100WBC (0.0-0.2); Platelet Count 377 X10*3/uL (160-400); Red Blood Count 4.83 X10*6/uL (4.60-5.80); White Blood Count 6.9 X10*3/uL (4.8-10.8)
[2025-07-04 12:56] LABS: Anion Gap 12 (12-20); Blood Urea Nitrogen 10 mg/dL (9-16); Calcium 9.6 mg/dL (8.4-10.2); Carbon Dioxide 24 mmol/L (22-29); Chloride 108 mmol/L (96-108); Creatinine Clr Calc Pharmacy 212.3; Estimated Glomerular Filt Rate > 60; Potassium 3.8 mmol/L (3.3-5.1); Sodium 140 mmol/L (135-145)
[2025-07-04 13:22] VITALS: O2SAT 98
[2025-07-04 13:23] LABS: Resp Syncy Virus RNA Qual PCR NEGATIVE (Negative); SARS COV2 PCR INHOUSE NEGATIVE (Negative)
--- NOTE | 2025-07-04 13:23 | MHC.EDTECH ---
This tech did an ambulation trial per providers request, pt's O2 Sat was 98% on room air, pt tolerated well, RN/MD aware
[2025-07-04 14:03] VITALS: BP 110/63; PULSE 97; RESP 17; TEMP -17.7; TEMP 0; O2SAT 98
--- OUTSIDE RECORDS SUMMARY | 2025-07-04 14:51 | XMS_ITS | Encounter Summary ---
Author Organization [facility] Address [address] [place] [id number] Phone Care Team Providers Care [employer] Worker Name Role Phone Janette Garcia MD Primary Care Provider [phone] Encounter Details Date Type Department Care Team (Late st Contact Info) Description 08/12/2024 Procedure Pass [facility], Ct Scan - [address] [address] Social History Tobacco Use Types Packs/Day Years Used Date Smoking Tobacco: Never Smokeless Tobacco: Never Alcohol Use Standard Drinks/Week Comments Yes 0 (1 standard drink = 0.6 oz pur e alcohol) socially Child or Family Care Answer Date Record ed Do you have problems with on e of the following making it difficult for you to work, study, or receive health care? No 08/02/2023 Education Answer Date Recorded Are you interested in help w ith more adult education (for example, completing high school, GED, job training, learning the [place] language, technical skills, or developing parenting skills)? No 08/02/2023 Are you concerned about learning? Not on file 08/02/2023 No 08/02/2023 Yes 08/02/2023 Food Answer Date Recorded Within the past 6 months we worried whether our food would run out before we got money to buy more. Sometimes True 023 Within the past 6 months the food we bought just didn't last and we didn't have enough money to get more. Never True 07/12 Residential Stability Answer Date Recor ded What is your housing situation today? I am stayi ng with others 08/02/2023 How many times have you move d in the past 12 months? Zero (I did not move) 08/02/2023 Paying for Meds Answer Date Recorded Do you have trouble paying for medicines? No 08/02/2023 Paying Utility Bills Answer Date Record ed Do you have trouble paying your heating or elect ricity bill? Yes 08/02/2023 Transportation Answer Date Recorded Has the lack of transportati on kept you from medical appointments or from getting medications? Yes 08/02/2023 Unemployment Answer Date Recorded Are you currently unemployed or working on a part-time or temporary basis, and looking for work? No 08/02/2023 Digital Access Answer Date Recorded No 08/02/2023 Yes 08/02/2023 Do you have reliable internet access at home? Ye s 08/02/2023 Do you have a device (e.g., phone, tablet, computer) with a working camera? Yes 08/02/2023 SNAP & WIC Answer Date Recorded Do you receive benefits from SNAP (the Supplemental Nutrition Assistance Program) or the Food Stamp Program? No 08/02/2023 SNAP is a free program that can help you and your family get access to healthy foods, nutrition classes, utility discounts, and more. Would you be interested in learning more? Yes 08/02/2023 Our hospital collaborates [facility] community organizations that help patients sign up for SNAP and access healthy nutritious foods. Can we give your contact information to our community partner so that they can reach out and help you enroll in SNAP? Yes 08/02/2023 Benefits received from [place]? Not on file 07/12 WIC is a free program, interested in learning mo re? Not on file 08/02/2023 Can we help you enroll in WIC? Not on file 1 Intimate Partner Violence Answer Date R ecorded Are you denied basic needs s uch as food, clothing, or medical care? No 08/12/2024 In the past 12 months have y ou been in a relationship with a person who hurts, threatens, or tries to control you? No 08/12/2024 Are you denied basic needs s uch as food, clothing, or medical care? No 08/12/2024 In the past 12 months have y ou been in a relationship with a person who hurts, threatens, or tries to control you? No 08/12/2024 Sex and Gender Information Value Date Recorded Sex Assigned at Male 10/31/2020 4:11 PM EST Legal Sex Male 4:05 PM EST Gender Identity Female 10/31/2020 4:11 PM EST Sexual Orientation Straight 08/02/2023 10 :11 AM EDT documented as of this encounter Functional Status * Calculated C-SSRS Risk Score (Lifetime/Recent) Answer Date of Assessment Author No Risk Indicated 08/12/2024 4:25 PM EDT Cheyanne Ryan RN * [place] Suicide Severity Rating Scale (Screener/Recent Self-Report) Question Answer Date of Assessment Author 1. Wish to be (Past 1 Month) No 08/12/2024 4:25 PM EDT Cheyanne Ryan RN 2. Non-Specific Active Suicidal Thoughts (Past 1 Month) No 08/12/2024 4:25 PM EDT Cheyanne Ryan RN 6. Suicidal Behavior (Lifetime) No 08/12/2024 4:25 PM EDT Cheyanne Ryan RN documented as of this encounter Plan of Treatment Not on file documented as of this encounter Visit Diagnoses Not on filedocumented in this encounter Additional Health Concerns Assessment Noted Time PHQ-9 Depression Total Score: 20 021 8:34 AM EST PHQ-2 Depression Total Score: 6 12/04/19 21 8:34 AM EST documented as of this encounter Care Teams [employer] Work[employer] Relationship Specialty Start Date End Date Janette Garcia MD [address] [place] [address] [email or web address] PCP - General Family Medicine 03/18/22 documented as of this encounter Additional Source Comments The information contained in this document represents components of the legal health record. It is not the complete legal health record.[facility]
--- OUTSIDE RECORDS SUMMARY | 2025-07-04 14:51 | XMS_ITS | Clinical Summary ---
Author Organization [facility] Address [facility] [employer] [address] [address] Phone Care Team Providers Care Tool And Equipment Rental Clerk Name Role Phone Janette Garcia MD Primary Care Provider Allergies No known active allergies Medications triamcinolone acetonide 0.1 % cream APPLY TO AFFECTED AREA TWICE A DAY 30 g 1 1 Active PROAIR HFA 90 mcg/actuation inhaler INHALE 2 PUFFS INTO THE LUNGS EVERY 6 (SIX) HOURS NEEDED FOR WHEEZING. 8.5 g 11 2 Active albuterol (ACCUNEB) 0.63 mg/3 mL nebulizer solution Take 3 mL (0.63 mg total) by nebulization every 6 (six) hours as needed for wheezing. 30 mL 5 2 Active estradioL (ESTRACE) 2 MG tabletIndication s:Gender dysphoria in adult TAKE 1.5 TABLETS (3 MG TOTAL) BY MOUTH 2 (TWO) TIMES A DAY. 90 tablet 11 2 Active spironolactone (ALDACTONE) 50 MG tablet TAKE 1.5 TABLETS BY MOUTH 2 TIMES A DAY. 270 tablet 2 3 Active estradiol valerate (DELESTROGEN) 40 mg/mL injection Inject 0.25 mL (10 mg total) into the muscle every 14 (fourteen) days. 5 mL 3 Active fluticasone propionate (FLOVENT DISKUS) 50 mcg/actuation diskus inhalerIndicatio ns:Moderate persistent asthma without complication Inhale 2 puffs into the lungs 2 (two) times a day. 60 each 2 10/23/202 3 Active sucralfate (CARAFATE) 1 gram tablet Take 1 tablet (1 g total) by mouth 4 (four) times a day as needed. 25 tablet 4 Active albuterol 90 mcg/actuation inhaler Inhale 2 puffs into the lungs every 6 (six) hours as needed for wheezing. 18 g 4 Active Active Problems Problem Noted Date Diagnosed Date Routine medical exam 08/02/2023 Assessment & Plan (08/02/2023 2:08 PM EDT): 23 y.o. female here for complete physical exam. Re-prescribed Flovent. F/u 6-8 weeks to reassess Check safety labs for hormone therapy. I have no objection to her using injected estrogen but advised her she will still need electrolysis or laser hair removal for the face. Discussed common logistical headaches in accessing liquid estrogen. Rx provided, will return for injection teaching with nurses. There is no 1:1 correspondence with pills and I will take my best guess as to a good dose for her. USPSTF A&B recommendations reviewed with pt. BP: elevated and I forgot to rcheck. Will check at nursing visit and next medical visit to see if medication warranted BMI: Body mass index is 44.54 kg/m . and working on this with regular exercise. Recommend limiting portion size Skin cancer prevention counseling for people 24 and under: discussed, does wear sunscreen STI testing for teens and adults at risk, and at least one lifetime HIV and hep C test: Ordered PrEP for persons at high risk of HIV: N/A plans in the next year: N/A no risk for Depression and anxiety screens: denies IPV screen in women of reproductive age (or others PRN): Negative Smoking cessation counseling: N/A Alcohol use counseling: N/A LTBI screening in people at increased risk: N/A BrCa screening in women/AFAB people at risk: 7-Question Family History Screening Tool negative Vaccinations: TDaP today, recommend COVID booster Last dental visit: overdue, encouraged to schedule Lipid screening to consider statin for primary prevention for adults 40-75, or at younger ages with risk factors: Ordered Severe obesity (BMI >= 40) 01/14/2021 Assessment & Plan (07/28/2022 2:52 PM EDT): We discussed the importance of sleep and weight maintenance and I recommend she go to bed earlier so she can get 7 to 8 hours of sleep nightly. We discussed laying plans for meal prep on her days off so that she can more easily grab something quick and healthy on the days that she works, since she does work such long hours. Atopic dermatitis 12/04/2020 Assessment & Plan (12/04/2020 4:31 PM EST): Chronic with recent worsening. Has tried and failed low potency steroid creams and moisturizers. -will do trial of triamcinalone 0.1% applied BID cyclically (7 days on/5 days off) as needed. Reviewed possible side effect of skin lightening and encouraged to trial on small area first. -continue to avoid prolonged or hot showers, continue to moisturize daily -follow up if no improvement Gender dysphoria in adult 12/04/2020 Overview (02/18/2021): Started hormones 01/2021 Assessment & Plan (07/28/2022 2:53 PM EDT): Feminizing appropriately and as expected. Safety labs today. Referred for genital hair removal in preparation for vaginoplasty. We discussed that there are no studies comparing injected versus oral estrogen but anecdotally. I agree with her friends that injections are probably more efficient. Given how far along she is in her transition I am not sure how much of a difference this would really make for her but I am certainly not opposed to helping her try injections if that is what she would like to do. Unfortunately, at the moment we are in the middle of yet another injectable estrogen manufacturing shortage. All of my patients who use injectable estrogen have been struggling to find it, and pharmacies have told me they expect it back in stock in September. I recommend that Fito continue oral estrogen for the time being. If she still wants to try injections in September, she should call my office for a prescription at that time. I will write her a prescription for a vial of estrogen and she can come in for a nursing appointment for injection teaching. She can come in for as many teaching appointments that she needs until she feels comfortable with injections. I explained that there is no set dose conversion because metabolism varies so I would make my best guess at the appropriate dose for her and then we would check a level to see how she does. Barring a switch to injections I do not need to see her again for a year as she is clinically stable Assessment & Plan (06/16/2022 11:27 AM EDT): Here for vaginoplasty consultation. Provided overview to [place] [facility] [place] well as detailed information about surgical services available at [facility] as well as their requirements. Patient meets WPATH background criteria for gender affirming surgery and has been taking feminizing hormones for nearly 18 months at this point. She has a strong support network for post-operative recovery, transportation, etc. However, we discussed that a few challenges remain: - we discussed that her BMI is above the typical range considered for full-depth vaginoplasty and reviewed both the challenges with this metric as well as the risk for suboptimal surgical outcomes at this weight. We discussed speaking with her PCP about a weight management referral to discuss various non-pharmacologic, pharmacologic, and even surgical options for weight reduction - we reviewed the requirement for 2 letters of support; pt does not have a regular therapist but will speak to her PCP about obtaining one; we can obtain the second through [facility] down the line - we reviewed needed hair removal procedures Will refer patient to [facility], surgical resident, to ensure that patient has all intake materials (and I provided the links through [employer] as well) Assessment & Plan (01/26/2022 8:14 AM EDT): Feeling good and seeing appropriate and expected changes on gender affirming hormones. Will increase estrogen from 4 mg to 6 mg daily (OK to take as: 3 mg BID; 4 AM/ 2 PM; 2 AM/ 4 PM, whatever feels right to her). Spironolactone dosing is adequate for testosterone suppression. Other parameters OK except mild leukocytosis, will repeat today to ensure this is not continuing to rise for some reason. Assessment & Plan (10/24/2021 4:44 PM EST): Fito is feeling well and seeing appropriate unexpected changes on estrogen and spironolactone. Her emotions coming closer to the surface are quite normal and she does not feel they are difficult to manage. She does not have time to get lab work today but agrees to get this done soon and if there is room to increase her hormone doses safely she would like to do so. We discussed WPATH guidelines for bottom surgery which recommend at least 12 months on hormones and 12 months of living as they affirmed gender. If I refer her now it would certainly take more than 3 months to have a surgical consult and get a surgical date scheduled so I see no reason to delay any further. We discussed the basic outline of constructing a neovagina and surgical aftercare. I explained that care is provided by the team of experts and she is tate enough to live in a state where we have 3 excellent programs at [facility], [facility] and [facility]. I explained that she will have visits with multiple different professionals to be evaluated and educated before her surgery and that she should expect to be out of work for quite some time while she recovers from the procedure. She is eager to proceed and asks to be referred to [facility]. She has heard that estrogen must be stopped before surgery. I explained that this was previously the standard of care because both the physical trauma of surgery and the immobilization of the postop period increase the risk of blood clots and so does estrogen. However, I explained that ideally we would be keeping her estrogen in the same range as a cisgender woman's. The final word on whether estrogen needs to be stopped of course belongs to the surgeon but I do advocate for maintaining estrogen therapy throughout the process for both the physical and emotional wellbeing of the patient, and can certainly discuss this with her surgeon if necessary. Assessment & Plan (07/22/2021 4:05 PM EDT): Seeing appropriate and expected changes on hormones to date. She did not get her labwork done at our last visit and I reminded Tyee that this is important to monitor the safety of her hormone use. We will check hormone levels and safety labs today and if there's room to increase her doses I will do so. Assessment & Plan (04/17/2021 2:15 PM EDT): Feeling well on her treatment so far and seeing expected and appropriate changes. No significant side effects at this time. Fito would like to increase the dose of both her estrogen and her spironolactone, which we will do today, and she will get safety labs drawn as well. I will see her back in 3 months, or sooner if needed. Assessment & Plan (02/18/2021 11:56 AM EDT): Tolerating estrogen well so far. Not a lot of change but it's quite early. We will increase her dose of estrogen and hold off on increasing the spironolactone as she complains of dizziness. If this resolves we can increase in future PRN. Discussed requirements for vaginoplasty (before and after); while there are long wait lists, she will need to be on hormones for quite a while longer before she will be eligible and I think it would be premature to refer for surgery yet. F/u 2 mos, check labs at that time. Assessment & Plan (01/14/2021 2:39 PM EDT): 20 y.o. yo patient with clear and consistent gender identity as a woman who is certain that feminizing hormones are the correct next step for her. Risks and benefits of estrogen and spironolactone treatment reviewed in detail with patient today, with the option to add on progesterone at a later date if breast growth is less than desired. See after-visit summary for specifics. Potentially complicating medical conditions for this patient include: obesity, and we discussed risk of metabolic complications, which we will monitor for, and DVT. Potentially complicating mental health conditions for this patient include: previous depression, and we discussed risk of recurrent symptoms, and that she should seek help with her PCP or me if these recur so we can treat her depression. We discussed different delivery vehicles and agreed that we would start with oral estradiol. Prescription was provided today. Follow up with me in 1 month to evaluate for potential adverse effects, anticipate dose increase at that time. Assessment & Plan (01/07/2021 4:24 PM EDT): Patient has a clear and consistent gender identity and is certain that starting hormones is the right decision. Discussed with pt the importance of establishing their medical and mental health baseline prior to initiating gender-affirming hormones so that we can have an appropriate conversation about informed consent. This includes: Baseline labs: already ordered by PCP, will get these drawn today Physical exam within the past year: done recently with PCP Mental health assessment, or information about mental health status from therapist if they have one currently or recently: done today with me We also discussed gamete storage. Patient is not interested in fertility preservation at this time. Patient is interested in starting oral estrogen and so will not need injection teaching with nursing staff. Having completed these steps, we will plan on an informed consent visit in person or virtually at her convenience. Assessment & Plan (12/04/2020 4:40 PM EST): Patient interested in starting gender affirming hormone therapy. Feels supported by family and friends. Denies current substance use. PHQ-9 score of 20 today, but patient states she feels mood is actually improving over the past year since coming out and would prefer to avoid any medications for mood. -will place referral to [facility] navigator as well as to an [place] provider for medication consultation and she agrees with this plan -encouraged to try and have labs done prior to that appointment. Asthma 2001 Assessment & Plan (12/04/2020 4:35 PM EST): Chronic, currently stable. Feels asthma is well controlled, using rescue inhaler sparingly but does need refills -refilled albuterol inhaler and nebulizer solution -discussed reasons to follow including increasing need for rescue inhaler use, night time or early years teacher symptoms Resolved Problems Problem Noted Date Diagnosed Date Resolved Date Encounter for routine adult health examination with abnormal findings 12/04/202008/02 Assessment & Plan (12/04/2020 4:30 PM EST): Labs: cbc/cmp/a1c/lipids/hepc and hiv screen ordered Immunizations: utd per pt. 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 Follow up annually for CPE and as needed Immunizations Immunization Administration Dates Next Due COVID-19 (Pre-08/02) Pfizer Vaccine, mRNA, PF ,02/26/2021 COVID-19 (Pre-08/02) Pfizer Vaccine, mRNA, herlinda-sucrose, PF 11/12/2021 Influenza Quadrivalent Preservative Free IM 07/11 Tdap 08/02/2023 Family History Medical History Relation Comments Chronic Pain Mother CRPS Ovarian cysts Mother Breast cancer Neg Hx Ovarian cancer Neg Hx Relation Status Comments Father Murdered Mother Social History Tobacco Use Types Packs/Day Years [...] high school, GED, job training, learning the Danish language, technical skills, or developing parenting skills)? [...] learning more? Yes 08/02/2023 Our hospital collaborates [facility] community organizations that help patients sign up for SNAP and access healthy nutritious foods. Can we give your contact information to our community partner so that they can reach out and help you enroll in SNAP? Yes 08/02/2023 Benefits received from WIC? Not on file 07/12 WIC is a [...] Orientation Straight 08/02/2023 10 :11 AM EDT Last Filed Vital Signs Vital Sign Reading Time Taken Comments Blood Pressure 128/81 08/12/2024 9:43 PM EDT Pulse 78 08/12/2024 9:43 PM EDT Temperature 36.5 C (97.7 F) 08/12/2024 9:43 PM EDT Respiratory Rate 17 08/12/2024 9:43 PM EDT Oxygen Saturation 96% 08/12/2024 9:43 PM EDT Inhaled Oxygen Concentration - - Weight 134.1 kg (295 lb 9.6 oz) 023 10:06 AM EDT Height 173.5 cm (5' 8.31 ) 08/02/2023 1 0:06 AM EDT Body Mass Index 44.54 08/02/2023 10:06 AM EDT Plan of Treatment Health Maintenance Due Date Last Done Comments SMOKING Hx and SMOKELESS TOBACCO SCREENING 2014 HPV VACCINES (1 - 3-dose series) 2016 HEPATITIS A VACCINES (1 of 2 - Risk 2-dose series) 2020 PNEUMOCOCCAL VACCINES (0-49 years) (1 of 2 - PCV) 2020 DEPRESSION SCREENING 12/04/2021 12/04/2020, 12/04/19 21 INFLUENZA VACCINE (#1) 2025 07/20/2023 COVID-19 VACCINE ( season) 2025 11/12/2021, 03/19/2021, 02/26/2021 POTASSIUM LEVEL 08/12/2025 08/12/2024, 07/12, 01/01/2022, Additional history exists Adult Td,Tdap Booster 08/02/2033 08/02/2023 HEPATITIS C SCREENING Completed 08/02/2023 , 08/02/2023, 01/07/2021 HIV ONE-TIME SCREENING (18-65 YEARS) Completed 08/02/2023 HIB VACCINES Aged Out No longer eligi ble based on patient's age to complete this topic MENINGOCOCCAL VACCINES (ACWY) Aged Out No longer eligible based on patient's age to complete this topic MENINGOCOCCAL VACCINES (B) Aged Out N o longer eligible based on patient's age to complete this topic Medical Devices Not on file Procedures Procedure Name Priority Date/Time Associated Diagnosis Comments BASIC METABOLIC PANEL STAT 08/12/2024 6:31 PM EDT HEPATITIS C ANTIBODY, QUALITATIVE Routine 08/02/2023 11:19 AM EDT Routine medical exam from Last 3 Months or Most Recently Relevant to Health Maintenance Results * Basic metabolic panel (08/12/2024 6:31 PM EDT) SODIUM 139 133 - 146 mmol/L [facility] CHLORIDE 99 96 - 108 mmol/L [facility] POTASSIUM 3.8 3.3 - 5.1 mmol/L [facility] CO2 26 21 - 35 mmol/L [facility] BUN 10 6 - 19 mg/dL [facility] CREATININE 0.70 0.5 - 1.5 mg/dL [facility] GLUCOSE 95 70 - 99 mg/dL [facility] CALCIUM 9.7 8.4 - 10.3 mg/dL [facility] EGFR >120 >59 mL/min/1.7 3m2 [facility] Comment:Estimated glomerular filtration rate calculated using the CKD-EPI refit equation. ANION GAP 18 10 - 20 mmol/L [facility] Blood 08/12/2024 6:31 PM EDT 08/12/2024 6:36 PM EDT us Martha Mays PA-C LAB BLOOD ORDERABLES Final Result Performing Organization Address City/[facility]/ZIP Co de Phone Number [address] [address] * Hepatitis C antibody, qualitative (08/02/2023 11:19 AM EDT) HCV NON-REACTIV E NON-REACTI VE [facility] Blood 08/02/2023 11:1 9 AM EDT 08/02/2023 11:21 AM EDT us Janette Garcia MD LAB BLOOD ORDERABLES Final R esult [address] [id number] from Last 3 Months or Most Recently Relevant to Health Maintenance Care Teams Tool And Equipment Rental Clerk Relationship Specialty Start Date End Date Janette Garcia MD [address] [id number] [email or web address] PCP - General Family Medicine 03/18/22 Additional Source Comments The information contained in this document represents components of the legal health record. It is not the complete legal health record.[facility]
== END 2025-07-04 14:04 | disposition home or self-care (01) ==
PROVIDERS: Emergency Provider Emergency Medicine
DX: J45.901 Unspecified asthma with (acute) exacerbation (principal)
CPT/HCPCS: 36415; 71045; 80048; 85025; 87637; 94640; 96374; 99284; 99285; J2919

== ENCOUNTER → 2025-07-04 12:11 | Outpatient (BNV) | payer OTHER, SELFPAY | PROVIDERS: Emergency Provider Emergency Medicine; Visit Provider Radiology Diagnostic Radiology | DX: R06.02 Shortness of breath (principal) | CPT/HCPCS: 71045 ==

== ENCOUNTER 2025-08-29 15:16 | Outpatient (AMB) | payer OTHER, SELFPAY ==
[2025-08-29 15:20] VITALS: BP 118/68; PULSE 89; O2SAT 100; BMI 44.4
--- NOTE | 2025-08-29 15:20 | A.OFFVIS_ITS ---
Vital Signs 08/29/25 15:20 Height 5 ft 8 in Weight 292 lb BMI 44.4 BP 118/68 Blood Pressure Location Rt brachial Pulse 89 Pulse Source Pulse Oximeter Pulse Oximetry (%) 100 Oxygen Delivery Method Room Air Intake Visit Reasons: Asthma Process Design Engineer Required: No Accompanied by: Self / Same As Patient Allergies No Known Allergies (No Known Allergies*) Allergy (Verified 08/29/25 15:23) Medication List - Last Reconciled 08/29/25 by Samantha Montalvo LPN albuterol sulfate 2.5 mg (3 mL) inhalation Q4-6H PRN albuterol sulfate 90 mcg/actuation 2 puffs inhalation Q4-6H PRN estradiol 3 mg (1.5 x 2 mg) PO BID 30 days fluticasone furoate-vilanterol 200-25 mcg/dose (Breo Ellipta) 1 inh inhalation DAILY spironolactone 75 mg (1.5 x 50 mg) PO BID 90 days HPI HPI Asthma: Details: Fito is a pleasant 25 year old female, never tobacco smoker, current marijuana smoker with underlying childhood asthma. She was initially referred by [facility] after multiple ED visits for asthma exacerbations over the last few months. At the last visit, patient reports compliance with Breo however has needed to be seen by urgent care for an exacerbation ultimately requiring prednisone. We had discussed previously switching daily regimen if exacerbations persist. Since completion of prednisone patient feels symptoms have been relatively controlled, although continues with dyspnea on exertion and intermittent wheezing. She does have a nebulizer for home use however does not use. [facility] Medical History Asthma Social History Alcohol intake: current Alcohol intake frequency: a few times a week Alcohol type: beer Patient Tobacco Use Status: Never used Tobacco Substance Use Type: Marijuana Review of Systems Const Denies chills, Denies excessive sweating, Denies fever(s), Denies headache(s) and Denies night sweats Eyes Denies dry eyes, Denies irritation and Denies itchy eyes ENT Reports Normal hearing present, Denies headache(s), Denies nasal discharge, Denies post nasal drip and Denies sore throat Card Denies chest pain, Denies chest pain at rest, Denies chest pain with activity, Denies claudication, Denies leg edema, Reports dyspnea on exertion, Denies orthopnea and Denies paroxysmal nocturnal dyspnea Resp Denies change in phlegm color, Denies chest congestion, Denies cough, Denies hemoptysis, Denies excessive phlegm production, Denies pain on inspiration, Denies pain with cough, Reports dyspnea on exertion, Denies stridor and Reports wheezing Musc Denies myalgias Neuro Reports Normal hearing present and Denies headache(s) Endo Denies excessive sweating Kamaljit/Lymph Denies lymphadenopathy Aller/Immun Denies itchy eyes, Denies seasonal rhinorrhea and Reports wheezing Physical Exam Vital Signs: Last Vital Signs Pulse 89 08/29/25 15:20 BP 118/68 08/29/25 15:20 Pulse Ox 100 08/29/25 15:20 Oxygen Delivery Method Room Air 08/29/25 15:20 BMI result Body Mass Index 44.4 Const General: cooperative, healthy appearing, comfortable, no acute distress, well developed and alert Nutritional Appearance: obese Orientation/consciousness: patient oriented x3 Limitations: no limitations HEENT Head: Yes normal to inspection, Yes normocephalic and Yes atraumatic Ears: hearing grossly normal bilaterally and external ears normal Eyes General: appearance normal, both eyes and all related structures Eyelids: Yes eyelids normal Sclerae: sclerae normal EOM: EOMs intact bilaterally Neck Neck: Yes normal visual inspection and Yes no lymphadenopathy Lymphatic: no lymphadenopathy noted Chest Chest palpation & inspection: normal inspection of the chest Resp Effort & Inspection: normal respiratory effort, able to speak in complete sentences, no audible wheezes, no cough, no stridor, not tachypneic, no tripod positioning and no use of accessory muscles Auscultation: wheezes expiratory wheezes and diminished lung sounds Cardio Jugular venous distension: no JVD Rate: regular rate Rhythm: regular rhythm Skin Other: warm, dry General skin exam: no rashes or lesions noted Neuro General: patient oriented x3 Cranial nerves: Yes Normal hearing present Cognition (Neuro): normal cognition Gait exam (Neuro): Normal gait present Extrem General: Yes normal to inspection, Yes capillary refill normal, Yes no clubbing, cyanosis or edema and Yes no pedal edema Psych Appearance: grossly normal and well kempt Speech and movement: Normal speech and movement present and Clear speech present Affect: normal affect Attitude: cooperative Thought process: Normal thought process present Thought content: Normal thought content present Insight: Good insight present (Psych) Judgement: Good judgement present (Psych) Assessment & Plan Assessment & Plan (1) Asthma: Code(s): J45.909 - Unspecified asthma, uncomplicated Category: Medical Qualifiers: Asthma complication type: unspecified Asthma persistence: unspecified Asthma severity: unspecified severity Qualified Code(s): J45.909 - Unspecified asthma, uncomplicated (2) Environmental allergies: Code(s): Z91.09 - Other allergy status, other than to drugs and biological substances Category: Medical Plan Fito continues with suboptimal control with Breo 200 mcg, will add Incruse to regimen and recommended increased use of daily nebulizer. If wheezing persist will send prescription for prednisone. We had discussed Singulair however patient would prefer to hold off due to potential side effects, advised to continue daily antihistamine. We also reviewed adding a biologic to regimen and patient apprehensive at this time, however agreeable to obtain RAST testing. She is aware to call if symptoms do not improve. All questions were answered and patient is in agreement of plan. Will follow-up in 8-10 weeks or sooner if needed. Medications: New umeclidinium 62.5 mcg/actuation (Incruse Ellipta) 1 inh inhalation DAILY 30 ea 3RF Refilled fluticasone furoate-vilanterol 200-25 mcg/dose (Breo Ellipta) 1 inh inhalation DAILY 60 ea 6RF albuterol sulfate 2.5 mg (3 mL) inhalation Q4-6H PRN 90 mL 6RF shortness of breath or wheezing albuterol sulfate 90 mcg/actuation 2 puffs inhalation Q4-6H PRN 1 ea 3RF for wheezing Coding Level of Care Code Est Pt Level 4 (23479) Diagnoses Asthma J45.909 Asthma complication type: unspecified Asthma persistence: unspecified Asthma severity: unspecified severity Environmental allergies Z91.09
--- OUTSIDE RECORDS SUMMARY | 2025-08-30 03:52 | XMS_ITS | Clinical Summary ---
Author Organization [facility] Address [facility] [employer] [address] [address] Phone Care Team Providers Care Metal Can Inspector Name Role Phone Janette Garcia MD Primary [...] overview to the transgender health program at [facility] as well as detailed information about surgical services available at [facility] as well as their requirements. Patient meets [...] procedures Will refer patient to Little Reyez, regulatory coordinator, to ensure that patient has all intake materials (and I provided the links through [place] as well) Assessment & Plan (01/26/2022 8:14 [...] where we have 3 excellent programs at [facility], [facility] and [facility]. I explained that she will have visits with multiple different professionals to be evaluated and educated before her surgery and that she should expect to be out of work for quite some time while she recovers from the procedure. She is eager to proceed and asks to be referred to [facility]. 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 Not on jose francisco e 08/07/2025 Are you concerned about learning? Not on file 08/07/2025 No 08/07/2025 No 08/07/2025 Food Answer Date Recorded Within the past [...] 08/02/2023 Digital Access Answer Date Recorded No 08/07/2025 No 08/07/2025 Reliable internet access at home? Not on file 08/07/2025 Device with a working camera? Not on file SNAP & WIC Answer Date Recorded Do [...] on patient's age to complete this topic IPV VACCINES Aged Out No longer eligi ble [...] Date/Time Associated Diagnosis Comments BASIC METABOLIC PANEL (BMP) STAT 08/12/2024 6:31 PM EDT HEPATITIS C ANTIBODY, QUALITATIVE Routine 08/02/2023 11:19 AM EDT Routine medical exam from Last 3 Months or Most Recently Relevant to Health Maintenance Results * Basic metabolic panel (08/12/2024 6:31 PM EDT) SODIUM 139 133 - 146 mmol/L [facility] CHLORIDE 99 96 - 108 mmol/L [facility] POTASSIUM 3.8 3.3 - 5.1 mmol/L [facility] CO2 26 21 - 35 mmol/L [facility] BUN 10 6 - 19 mg/dL [facility] CREATININE 0.70 0.5 - 1.5 mg/dL [facility] GLUCOSE 95 70 - 99 mg/dL [facility] CALCIUM 9.7 8.4 - 10.3 mg/dL [facility] EGFR >120 >59 mL/min/1.7 3m2 [facility] Comment:Estimated glomerular filtration rate calculated using the CKD-EPI refit equation. ANION GAP 18 10 - 20 mmol/L [facility] Blood 08/12/2024 6:31 PM EDT 08/12/2024 6:36 PM EDT us Martha Mays PA-C LAB BLOOD BKR ORDERABLES Fi nal Result [address] [id number] * Hepatitis C antibody, qualitative (08/02/2023 11:19 AM EDT) HCV NON-REACTIV E NON-REACTI VE [facility] Blood 08/02/2023 11:1 9 AM EDT 08/02/2023 11:21 AM EDT us Janette Garcia MD LAB BLOOD BKR ORDERABLES Fin al Result Performing Organization Address [facility]/ZIP Co de Phone Number [address] [address] from Last 3 Months or Most Recently Relevant to Health Maintenance Care Teams Metal Can Inspector Relationship Specialty Start Date End Date Janette Garcia MD [address] [address] PCP - General Family Medicine 03/18/22 Additional Source Comments The information contained in this document represents components of the legal health record. It is not the complete legal health record.[facility]
--- OUTSIDE RECORDS SUMMARY | 2025-08-30 03:52 | XMS_ITS | Encounter Summary ---
Author Organization [facility] Address [address] [place] [phone] Phone Care Team Providers Care Glazier Artist Name Role Phone Janette Garcia MD Primary Care Provider [phone] Encounter Details Date Type Department Care Team (Late st Contact Info) Description 08/12/2024 Procedure Pass [facility], Ct Scan - [address] [address] Social History Tobacco Use Types Packs/Day Years [...] high school, GED, job training, learning the [place] language, technical skills, or developing parenting skills)? [...] learning more? Yes 08/02/2023 [facility] hospital collabor[facility] community organizations that help patients sign up [...] 4:25 PM EDT Cheyanne Ryan RN * [place] Suicide Severity Rating Scale (Screener/Recent Self-Report) Question [...] documented as of this encounter Care Teams Glazier Artist Relationship Specialty Start Date End Date Janette Garcia MD [address] [place] [address] [email or web address] PCP - General Family Medicine 03/18/22 documented as of this encounter Additional Source Comments The information contained in this document represents components of the legal health record. It is not the complete legal health record.[facility]
== END 2025-08-29 15:40 | disposition home or self-care (01) ==
LOC: HO.HPSW 15:17
PROVIDERS: Visit Provider Nurse Practitioner Family
DX: J45.909 Unspecified asthma, uncomplicated (principal); Z91.09 Other allergy status, other than to drugs and biological substances
CPT/HCPCS: 99214

== ENCOUNTER → 2025-08-29 15:16 | Outpatient (BNVA) | payer OTHER, SELFPAY | PROVIDERS: Visit Provider Nurse Practitioner Family | DX: J45.909 Unspecified asthma, uncomplicated (principal); Z91.09 Other allergy status, other than to drugs and biological substances | CPT/HCPCS: 99212 ==